=== PATIENT | male | born 1965 | race Two or more races ===

== ENCOUNTER 2025-07-16 15:39 | Inpatient (IN) | payer OTHER ==
[~2025-07-16] VITALS: Ht 167.6 cm; Wt 71.4 kg
--- NOTE | 2025-07-16 16:48 | DVH ---
CLINICAL HISTORY: chest pain TECHNIQUE: Single view of the chest was obtained. COMPARISON: None FINDINGS: The heart size and pulmonary vasculature are normal. The lungs are clear. IMPRESSION: NO ACUTE CARDIOPULMONARY PROCESS.
--- NOTE | 2025-07-16 17:02 | ED.PDOC ---
SOB-HPI HPI Comments This is a 59 year old male presenting to the ED with chief complaint of SOB. Patient reports that he has been experiencing SOB with associated left sided chest pain since last night. Patient relays that he has been unable to sleep due to the SOB. Patient states that he has history of pleural effusion a few months ago. Patient denies any fever, chills, dizziness, headache, hemoptysis, or syncope. Chief Complaint: Shortness of Breath Time Seen by MD: 16:00 Reviewed notes: Nurses Notes, Allergies Information Source: Patient Mode of Arrival: Ambulatory Severity: Moderate Timing: Hours Duration: Since onset Context: At Rest PE Risk Factors: None History of: None Prehospital treatment: None Modifying Factors: Nothing Associated Signs and Symptoms: Chest Pain Quality: Aching Radiation: No Radiation Location: Substernal Past Medical History PAST MEDICAL HISTORY: Denies Surgical History: Denies all surgeries Family History Family History: Reviewed,noncontributory to illness Social History Smoker: Non-Smoker Alcohol: Denies ETOH Use Drugs: Denies Drug Use Lives In: Home Constitutional: denies: chills, diaphoresis, fatigue, fever, malaise, sweats, weakness, others EENTM: denies: blurred vision, double vision, ear bleeding, ear discharge, ear drainage, ear pain, ear ringing, eye pain, eye redness, hearing loss, mouth pain, mouth swelling, nasal discharge, nose bleeding, nose congestion, nose p ain, photophobia, tearing, throat pain, throat swelling, voice changes, others Respiratory: reports: shortness of breath; denies: cough, hemoptysis, orthopnea, SOB at rest, SOB with excertion, stridor, wheezing, others Cardiovascular: reports: chest pain; denies: dizzy spells, diaphoresis, Dyspnea on exertion, edema, irregular heart beat, left arm pain, lightheadedness, palpitations, PND, syncope, others Gastrointestinal: denies: abdomen distended, abdominal pain, blood streaked bowels, constipated, diarrhea, dysphagia, difficulty swallowing, hematemesis, melena, nausea, poor appetite, poor fluid intake, rectal bleeding, rectal pain, vomiting, others Genitourinary: denies: burning, dysuria, flank pain, frequency, hematuria, incontinence, penile discharge, penile sore, pain, testicle pain, testicle swelling, urgency, others Neurological: denies: dizziness, fainting, headache, left sided numbness, left sided weakness, numbness, paresthesia, pre-existing deficit, right sided numbness, right sided weakness, seizure, speech problems, tingling, tremors, weakness, others Musculoskeletal: denies: back pain, gout, joint pain, joint swelling, muscle pain, muscle stiffness, neck pain, others Integumetry: denies: bruises, change in color, change in hair/nails, dryness, laceration, lesions, lumps, rash, wounds, others Allergic/Immunocompromised: denies: Difficulty Healing, Frequent Infections, Hives, Itching, others Hematologic/Lymphatic: denies: anemia, blood clots, easy bleeding, easy bruising, swollen glands, others Endocrine: denies: excessive hunger, excessive sweating, excessive thirst, excessive urination, flushing, intolerance to cold, intolerance to heat, unexplained weight gain, unexplained weight loss, others Psychiatric: denies: anxiety, bipolar disorder, depression, hopeless, panic disorder, schizophrenia, sleepless, suicidal, others All Other Systems: Reviewed and Negative Physical Exam General Appearance: No Apparent Distress, Normal HEENT: Normal ENT Inspection, Pharynx Normal, TMs Normal Neck: Full Range of Motion, Non-Tender, Normal, Normal Inspection Respiratory: Chest Non-Tender, Lungs Clear, No Accessory Muscle Use, No Respiratory Distress, Normal Breath Sounds Cardiovascular: No Edema, No JVD, No Murmur, No Gallop, Normal Peripheral Pulses, Regular Rate/Rhythm Breast Exam: Deferred Gastrointestinal: No Organomegaly, Non Tender, No Pulsatile Mass, Normal Bowel Sounds, Soft Genitalia: Deferred Pelvic: Deferred Rectal: Deferred Extremities: No calf tenderness, Normal capillary refill, Normal inspection, Normal range of motion, Non-tender, No pedal edema Musculoskeletal : Apperance: Normal 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 Was a procedure done?: No Differential Dx Differential Diagnosis: CHF, COPD, Hypertension, Hyponatremia, Panic Attack, Pneumonia, Pneumothorax, Sinusitis X-Ray, Labs, Meds, VS Vital Signs Date Time Temp Pulse Resp B/P (MAP) Pulse Ox O2 Delivery O2 Flow Rate FiO2 07/16/25 15:50 98.6 109 22 186/129 98 98.6 07/16/25 15:46 106 Lab Test 07/16/25 17:59 07/16/25 16:47 Range/Units Troponin I High Sensitivity 49 50 </=54 ng/L White Blood Count 6.6 4.4-10.8 10^3/uL Red Blood Count 4.88 4.5-5.90 10^6/uL Hemoglobin 15.2 13.5-17.5 g/dL Hematocrit 44.0 41.0-53.0 % Mean Corpuscular Volume 90.3 80.0-100.0 fL Mean Corpuscular Hemoglobin 31.1 28.0-32.0 pg Mean Corpuscular Hemoglobin Concent 34.4 32.0-36.0 g/dL Red Cell Distribution Width 14.4 H 11.8-14.3 % Platelet Count 152 140-450 10^3/uL Mean Platelet Volume 9.1 6.9-10.8 fL Neutrophils (%) (Auto) 58.2 37.0-80.0 % Lymphocytes (%) (Auto) 30.4 10.0-50.0 % Monocytes (%) (Auto) 8.9 0.0-12.0 % Eosinophils (%) (Auto) 1.5 0.0-7.0 % Basophils (%) (Auto) 1.0 0.0-2.0 % Neutrophils # (Auto) 3.8 1.6-8.6 10 ^3/uL Lymphocytes # (Auto) 2.0 0.4-5.4 10 ^3/uL Monocytes # (Auto) 0.6 0-1.3 10 ^3/uL Eosinophils # (Auto) 0.1 0-0.8 10 ^3/uL Basophils # (Auto) 0.1 0-0.2 10 ^3/uL Nucleated Red Blood Cells 1.2 % Sodium Level 143 136-145 mmol/L Potassium Level 3.9 3.5-5.1 mmol/L Chloride Level 110 H 98-107 mmol/L Carbon Dioxide Level 22 20-31 mmol/L Anion Gap 11 5-15 Blood Urea Nitrogen 18 9-23 mg/dL Creatinine 1.08 0.700-1.30 mg/dL Glomerular Filtration Rate Calc 80 >90 mL/min BUN/Creatinine Ratio 16.7 10.0-20.0 Serum Glucose 94 74-106 mg/dL Calcium Level 9.1 8.7-10.4 mg/dL B-Type Natriuretic Peptide 2738.01 0-100 pg/mL Time of 1ST Reevaluation: 17:00 Reevaluation 1ST: Unchanged Patient Education/Counseling: Diagnosis, Treatment Family Education/Counseling: Diagnosis, Treatment SEPSIS Sepsis Screen Date sepsis recognized/suspect: Jul 16, 2025 Time Sepsis recognized/suspect: 1536 Recent Procedure: No On Antibiotic Therapy: No Respiratory Rate >20: Yes Heart Rate >90: Yes Temp<36 C (96.8 F) or >38.3 C: No SBP <90 or MAP <65 mmHG: No New Acute Mental Status Change: No Is the patient on CPAP, BIPAP,: No Physician Orders Electrocardigram (07/16/25 15:51) Chest Portable (07/16/25 16:07) Troponin-I Hs (07/16/25 19:07) Vital Signs Date Time Temp Pulse Resp B/P (MAP) Pulse Ox O2 Delivery O2 Flow Rate FiO2 07/16/25 15:50 98.6 109 22 186/129 98 98.6 07/16/25 15:46 106 Laboratory Tests Test 07/16/25 16:47 White Blood Count 6.6 10^3/uL (4.4-10.8) Departure 1 Departure Time of Disposition: 19:01 (Patient presented with chest pain that was concerning for possible STEMI, ACS, PE, Pneumonia, Muscle Strain, COPD, Dissection. Data: 1. I ordered and reviewed the result of at least 3 labs including a CBC, BMP, and Troponin. 2. I independently interpreted the following tests: EKG which shows sinus arrhythmia and Chest X-ray which shows benign chest.Risk:This patient has a high risk of morbidity due to further diagnostic testing or treatment and may suffer from an acute cardiac or respiratory disorder. Workup reveals concern for ACS and patient should be admitted for further workup and possible expert consultation. ) Impression: Primary Impression: Acute chest pain Additional Impression: Shortness of breath Disposition: ADMITTED INPATIENT Admit to: Med Surg Condition: Serious Critical Care Note Critical Care Time?: Yes Critical care comment: Acute chest pain Authorized and Performed by: Wagner Ureña MD Total critical care time: Approximately 38 minutes Due to a high probability of clinically significant, life threatening deterior ation, the patient required my highest level of preparedness to intervene emergently and I personally spent this critical care time directly and personally managing the patient. This critical care time included obtaining a history; examining the patient; pulse oximetry; ordering and review of studies; arranging urgent treatment with development of a management plan; evaluation of patient's response to treatment; frequent reassessment; and, discussions with other providers. This critical care time was performed to assess and manage the high probability of imminent, life-threatening deterioration that could result in multi-organ failure. It was exclusive of separately billable procedures and treating other patients and teaching time. Please see my other sections and the rest of the note for further information on patient assessment and treatment. Stability Stability form required: No Heart Score Heart Score: Heart Score Response (Comments) Value History N/A 0 EKG N/A 0 Age N/A 0 Risk Factors N/A 0 Troponin N/A 0 Total 0 I personally scribed for WAGNER UREÑA MD ([email or web address]) on 07/16/25 at 17:02. Electronically submitted by Edin Jean ([email or web address]). WAGNER UREÑA MD Jul 16, 2025 17:02
[2025-07-16 17:03] LABS: Hematocrit 44.0 % (41.0-53.0); Hemoglobin 15.2 g/dL (13.5-17.5); Mean Corpuscular Hemoglobin 31.1 pg (28.0-32.0); Mean Corpuscular Volume 90.3 fL (80.0-100.0); Nucleated Red Blood Cells % 1.2 %
[2025-07-16 17:13] LABS: Potassium 3.9 mmol/L (3.5-5.1); Sodium 143 mmol/L (136-145)
[2025-07-16 17:14] LABS: Anion Gap 11 (5-15); Calcium 9.1 mg/dL (8.7-10.4); Carbon Dioxide 22 mmol/L (20-31)
[2025-07-16 17:15] LABS: Chloride 110 mmol/L (98-107)
[2025-07-16 17:19] LABS: BUN/Creatinine Ratio 16.7 (10.0-20.0); Blood Urea Nitrogen 18 mg/dL (9-23); Glucose 94 mg/dL (74-106)
[2025-07-16] MEDS ORDERED: DOCUSATE SOD 100 MG CAP PO PRN (23:15)
[2025-07-16] MEDS ORDERED: ACETAMINOPHEN 325 MG TAB PO PRN (23:15)
[2025-07-16] MEDS ORDERED: HYDROcodone-ACET 5/325MG TAB PO PRN (23:15)
[2025-07-16] MEDS ORDERED: NITROGLYCERIN 0.4 MG SL TAB SL PRN (23:15)
[2025-07-17] VITALS (8 sets, daily range): BP systolic 139–162; BP diastolic 100–116; PULSE 71–107; RESP 16–20; TEMP 97.4–98.7; O2SAT 94–100
[2025-07-17 01:20] LABS: Hematocrit 44.0 % (41.0-53.0); Hemoglobin 14.8 g/dL (13.5-17.5); Mean Corpuscular Hemoglobin 30.5 pg (28.0-32.0); Mean Corpuscular Volume 90.5 fL (80.0-100.0); Nucleated Red Blood Cells % 0.1 %
[2025-07-17 01:31] LABS: Albumin 4.2 g/dL (3.2-4.8); Alkaline Phosphatase 97 U/L (46-116); Anion Gap 9 (5-15); BUN/Creatinine Ratio 18.9 (10.0-20.0); Calcium 9.1 mg/dL (8.7-10.4); Carbon Dioxide 26 mmol/L (20-31); Potassium 4.2 mmol/L (3.5-5.1); Total Protein 7.0 g/dL (5.7-8.2)
[2025-07-17 01:32] LABS: Bilirubin, Total 0.6 mg/dL (0.2-1.0)
[2025-07-17 01:35] LABS: Alanine Aminotransferase 42 U/L (7-40); Blood Urea Nitrogen 23 mg/dL (9-23); Chloride 111 mmol/L (98-107); Glucose 110 mg/dL (74-106); Sodium 146 mmol/L (136-145)
[2025-07-17] MEDS: ATORVASTATIN 20 MG TAB PO SCH (03:18)
--- NOTE | 2025-07-17 03:52 | ECG ---
[facility] Test Date: 2025-07-16 Test Time: 15:46:17 Pat Name: JORGE MCCLENDON Department: ED Room: 0292T B Gender: M Director Clinical Research: JORGITO : 1965 Requested By: WAGNER ORTEZ Order Number: [id number] Reading MD: Von Lynch Measurements Intervals [place]iken Rate: 106 P: 63 IL: 151 QRS: 92 QRSD: 98 T: 38 QT: 335 QTc: 445 Interpretive Statements Sinus tachycardia Biatrial enlargement Borderline right axis deviation LVH with secondary repolarization abnormality Baseline wander in lead(s) II,aVR,V1 Electronically Signed On 07-20-2025 10:21:04 PDT by Von Lynch Please click the below link to view image of tracing.
[2025-07-17] MEDS: FUROSEMIDE 40 MG/4 ML VIAL IV ONE (05:06)
--- NOTE | 2025-07-17 05:13 | DVHHPRES ---
History of Present Illness Resident Creating Document: ELIJAH LEONARD RESIDENT History of Present Illness History of Present Illness (HPI): Mary Chand is a 59-year-old male with a medical history significant for heart failure with reduced ejection fraction, hypertension, dyslipidemia, and a prior episode of pleural effusion a few months ago, who presented to the emergency department with a chief complaint of shortness of breath (SOB) and left-sided chest pain. He reports that the SOB began two days ago and has been persistent, accompanied by sharp, on-and-off chest pain rated 7 out of 10 in intensity, without radiation or identifiable alleviating or aggravating factors. The patient notes that the SOB worsened last night, preventing him from sleeping, and has been severe enough to keep him from going to work. He finds some relief when elevating the head of his bed. In addition to his current symptoms, he mentions having had a headache for the past two months. He denies experiencing fever, chills, dizziness, hemoptysis, syncope, or any new-onset headache during this episode. Past Medical History (PMH): heart failure with reduced ejection fraction, hypertension, dyslipidemia, pleural effusion Past Surgical History (PSH): Thoracentesis OBGYN Hx in Females: noncontributory Family history (FH): no relevant family history EtOH: quit alcohol use 2 years ago Smoking /Vapin pack years Recreational Drugs: admits cocaine use, stopped 5 years ago Residence: lives with family Home Medications: no home medications Allergies: no known allergies PCP: Dr. Hawkins Specialist relevant to admission: nonrelevant Review of Systems Review of Systems General: patient denies fever, fatigue, weaknes, sweating, any recent changes in appetite and weight HEENT: No headaches, visiual changes, hearing loss, tinnitus, nasal congestion and discharge, and sore throat. Cardiovascular: Complains of chest pain, shortness of breath Respiratory: No cough, and wheezing. Gastrointestinal: Denies nausea, vomiting, dysphagia, odynophagia, heartburn, abdominal pain, flatulence, bloating, diarrhea, constipation, change in stool, or blood in stool. Genitourinary: No dysuria, hematuria, discharge, frequency, urgency, nocturia, incontinence, and urinary retention. Endocrine: No heat or cold intolerance, polydipsia, polyuria, and polyphagia. Neurological: No dizziness, extremity weakness and numbness, tremors, gait disturbance, seizures, and memory impairment. Psychiatric: Denies depression, anxiety,or insomnia. Musculoskeletal: Denies neck pain, stiffness and swelling, back pain, muscle weakness, joint pain, stiffness, swelling, or limited range of motion. Skin: No rashes, itching, skin lesion, changes in hair, nail, skin texture and breast. Hematologic/Lymphatic: Denies easy bruising, bleeding tendencies, or lymph node enlargement. Allergies: Coded Allergies: NO KNOWN ALLERGIES (Unverified , 07/16/25) Medications Current Medications Medications Dose Ordered Sig/Mary Route Start Time Stop Time Status Last Admin Dose Admin Acetaminophen 325 mg Q4HP PRN PO 07/16/25 23:15 Acetaminophen/ Hydrocodone Bitart 1 tab Q4HP PRN PO 07/16/25 23:15 Ondansetron HCl 4 mg Q4HP PRN IV 07/16/25 23:15 Docusate Sodium 100 mg BIDPRN PRN PO 07/16/25 23:15 Nitroglycerin 0.4 mg Q5MINP PRN SL 07/16/25 23:15 Morphine Sulfate 2 mg Q30M PRN IV 07/16/25 23:15 Atorvastatin Calcium 40 mg HS PO 07/17/25 00:45 07/17/25 03:18 40 MG Aspirin 81 mg DAILY PO 07/17/25 00:45 07/17/25 03:18 81 MG Exam Vital Signs Vital Signs Date Time Temp Pulse Resp B/P (MAP) Pulse Ox O2 Delivery O2 Flow Rate FiO2 07/17/25 04:41 144/110 (121) 07/17/25 03:36 98.7 71 18 94 98.7 07/17/25 03:36 Room Air* 0 21 Exam General Appearance: Alert, Oriented X3, Cooperative, No acute distress HEENT: Atraumatic, PERRLA, EOMI, Mucous membrane moist/pink Respiratory: Mild crackles Cardiovascular: Regular rate, Normal S1, Normal S2, No murmurs, no chest wall tenderness Abdominal: Normal bowel sounds, Soft, No tenderness, No hepatospenomegaly, No masses Extremities: No clubbing, No cyanosis, No edema, Normal pulses, No tenderness/swelling Skin: No rashes, No breakdown, No significant lesion Neuro: Normal gait, Normal speech, Strength at 5/5 X4 ext, Normal tone, Sensation intact, Cranial nerves 3-12 NL, Reflexes 2+ Psych/Mental Status: Mental status NL, Mood NL Labs/Xrays Labs Test 07/17/25 00:56 07/17/25 00:50 07/16/25 20:12 Range/Units White Blood Count 7.7 4.4-10.8 10^3/uL Red Blood Count 4.86 4.5-5.90 10^6/uL Hemoglobin 14.8 13.5-17.5 g/dL Hematocrit 44.0 41.0-53.0 % Mean Corpuscular Volume 90.5 80.0-100.0 fL Mean Corpuscular Hemoglobin 30.5 28.0-32.0 pg Mean Corpuscular Hemoglobin Concent 33.7 32.0-36.0 g/dL Red Cell Distribution Width 14.8 H 11.8-14.3 % Platelet Count 147 140-450 10^3/uL Mean Platelet Volume 9.0 6.9-10.8 fL Neutrophils (%) (Auto) 66.9 37.0-80.0 % Lymphocytes (%) (Auto) 23.2 10.0-50.0 % Monocytes (%) (Auto) 8.3 0.0-12.0 % Eosinophils (%) (Auto) 0.9 0.0-7.0 % Basophils (%) (Auto) 0.7 0.0-2.0 % Neutrophils # (Auto) 5.2 1.6-8.6 10 ^3/uL Lymphocytes # (Auto) 1.8 0.4-5.4 10 ^3/uL Monocytes # (Auto) 0.6 0-1.3 10 ^3/uL Eosinophils # (Auto) 0.1 0-0.8 10 ^3/uL Basophils # (Auto) 0.1 0-0.2 10 ^3/uL Nucleated Red Blood Cells 0.1 % Sodium Level 146 H 136-145 mmol/L Potassium Level 4.2 3.5-5.1 mmol/L Chloride Level 111 H 98-107 mmol/L Carbon Dioxide Level 26 20-31 mmol/L Anion Gap 9 5-15 Blood Urea Nitrogen 23 9-23 mg/dL Creatinine 1.22 0.700-1.30 mg/dL Glomerular Filtration Rate Calc 69 >90 mL/min BUN/Creatinine Ratio 18.9 10.0-20.0 Serum Glucose 110 H 74-106 mg/dL Calcium Level 9.1 8.7-10.4 mg/dL Total Bilirubin 0.6 0.2-1.0 mg/dL Aspartate Amino Transferase (AST) 30 13-40 U/L Alanine Aminotransferase (ALT) 42 H 7-40 U/L Alkaline Phosphatase 97 46-116 U/L C-Reactive Protein High Sensitivity 0.77 <1.0 mg/dL Total Protein 7.0 5.7-8.2 g/dL Albumin 4.2 3.2-4.8 g/dL Erythrocyte Sedimentation Rate 8 0-20 mm/hr D-Dimer, Quantitative 0.72 H 0.0-0.49 mg/L FEU B-Type Natriuretic Peptide 2760.45 0-100 pg/mL Troponin I High Sensitivity 53 </=54 ng/L SEPSIS Sepsis Screen Date sepsis recognized/suspect: Jul 16, 2025 Time Sepsis recognized/suspect: 1536 Recent Procedure: No On Antibiotic Therapy: No Respiratory Rate >20: Yes Heart Rate >90: Yes Temp<36 C (96.8 F) or >38.3 C: No SBP <90 or MAP <65 mmHG: No New Acute Mental Status Change: No Is the patient on CPAP, BIPAP,: No Physician Orders Admit (07/16/25 23:06) Allergies (07/16/25 23:06) Code Status (07/16/25 23:06) Acetaminophen Tablet (Tylenol Tablet) (07/16/25 23:15) Hydrocodone-Acet 5/325mg Tab ([place] (07/16/25 23:15) Ondansetron Hcl (Zofran) (07/16/25 23:15) Docusate Sodium Capsule (Colace Capsule) (07/16/25 23:15) Cardiac Diet-2gna,Lofat,Lochol (07/17/25 Breakfast) Condition: Fair (07/16/25 23:06) Nitroglycerin Sublingual (Ntrostat Subli (07/16/25 23:15) Morphine Sulfate Injection (07/16/25 23:15) Stat Ekg For Chest Pain (07/16/25 23:06) Oracle Scm Consultant For 24 Hours (07/16/25 23:06) Communication Order (07/17/25 00:31) Echo 2d Mode Cardiac Dop (07/17/25 00:33) Atorvastatin (Lipitor) (07/17/25 00:45) Aspirin Tablet (07/17/25 00:45) Drug Screen (07/17/25 01:00) Vital Signs Date Time Temp Pulse Resp B/P (MAP) Pulse Ox O2 Delivery O2 Flow Rate FiO2 07/17/25 04:41 144/110 (121) 07/17/25 03:36 98.7 71 18 162/116 (131) 94 98.7 07/17/25 03:36 94 18 94 Room Air* 0 21 07/17/25 00:25 97.5 85 16 159/100 (119) 99 97.5 Laboratory Tests Test 07/17/25 00:56 White Blood Count 7.7 10^3/uL (4.4-10.8) Medications Medications Dose Ordered Sig/Mary Route Start Time Stop Time Status Last Admin Dose Admin Aspirin 81 mg DAILY PO 07/17/25 00:45 07/17/25 03:18 81 MG Atorvastatin Calcium 40 mg HS PO 07/17/25 00:45 07/17/25 03:18 40 MG Clonidine HCl 0.2 mg ONCE ONCE PO 07/16/25 20:45 07/16/25 20:46 DC 07/16/25 21:03 0.2 MG Assessment/Plan Assessment/Plan # Acute exacerbation of heart failure with reduced ejection fraction - IV Lasix - Monitor input/ output - Daily weight monitoring # Chest pain to rule out ACS - EKG - sinus arrhythmia - Negative troponin X 3 #ruled out pneumothorax - Negative chest x-ray #To rule out pulmonary embolism - Follow D-dimer #History of essential hypertension - follow-up with PCP as outpatient to restart medications #History of dyslipidemia PUD prophylaxis: not needed DVT prophylaxis: brisk movement. Barriers to discharge: Medical diagnosis and managment in progress. Patient lives with family. Independent for ADL. PCP: Dr. Hawkins Specialist Relevent To Admission: Non-Relevant Case discussed with Dr. Fuller. Code Status: Full Code. Complex patient care discussion needed. Spend total 35 minutes for bedside assessment, case discussion and management. Plan discussed with: Patient My Orders Orders - ELIJAH LEONARD RESIDENT Procedure Category Date Status Time Admit ADMIT 07/16/25 Transmitted 23:06 Allergies KEYSHA 07/16/25 In Process 23:06 Code Status CODE 07/16/25 Transmitted 23:06 Acetaminophen Tablet PHA 07/16/25 In Process (Tylenol Tablet) 23:15 Hydrocodone-Acet PHA 07/16/25 In Process 5/325mg Tab ([place] 23:15 Ondansetron Hcl PHA 07/16/25 In Process (Zofran) 23:15 Docusate Sodium PHA 07/16/25 In Process Capsule (Colace 23:15 Cardiac DIET 07/17/25 Transmitted Diet-2gna,Lofat,Lochol Breakfast Condition: Fair KEYSHA 07/16/25 In Process 23:06 Nitroglycerin PHA 07/16/25 In Process Sublingual (Ntrostat 23:15 Morphine Sulfate PHA 07/16/25 In Process Injection 23:15 Stat Ekg For Chest KEYSHA 07/16/25 In Process Pain 23:06 Oracle Scm Consultant For KEYSHA 07/16/25 In Process 24 Hours 23:06 Communication Order ORDERS 07/17/25 Transmitted 00:31 Echo 2d Mode Cardiac US 07/17/25 Logged DOP 00:33 Atorvastatin (Lipitor) PHA 07/17/25 In Process 00:45 Aspirin Tablet PHA 07/17/25 In Process 00:45 Drug Screen LAB 07/17/25 Logged 01:00 Date of Service: Jul 16, 2025 Billing Provider: JESUS FULLER MD Common Visit Codes: [id number] INP/OBS CARE (HIGH) Secondary Visit Codes: [id number] CARE PLAN 30 MINUTES ELIJAH LEONARD Jul 17, 2025 05:13
[2025-07-17] MEDS ORDERED: ACETAMINOPHEN 325 MG TAB PO PRN (07:30)
[2025-07-17 08:24] LABS: HDL Cholesterol 45 mg/dL (40-59)
[2025-07-17 08:26] LABS: Cholesterol 235 mg/dL (< 200); Triglycerides 182 mg/dL (< 150)
[2025-07-17 08:52] LABS: Iron 78.0 ug/dL (65-175)
[2025-07-17 08:55] LABS: Total Iron Binding Capacity 336.0 ug/dL (250-425)
[2025-07-17] MEDS: SPIRONOLACTONE 25 MG TAB PO SCH (10:24)
[2025-07-17] MEDS: CARVEDILOL 3.125 MG TAB PO SCH (10:24)
[2025-07-17] MEDS: FUROSEMIDE 40 MG/4 ML VIAL IV SCH ×2 (10:24→20:56)
--- NOTE | 2025-07-17 14:15 | DVHPNRES ---
Progress Note Date Seen: Jul 17, 2025 Resident Creating Document: KD QIU RESIDENT Medical Necessity Reason Pt with a Central, PICC or Fol: No Subjective Review of Systems Mannie Hernandez is a 59-year-old male patient who presents to the ED with chief complaint of dyspnea and retrosternal oppressive chest pain intensity 7/10 which last approximately 30 seconds, normal we triggered and Functional Class III, improved from rest, which has been occurring for the past a couple of weeks before his admission, but has gotten progressively worse, associated with uncontrolled severe hypertension (systolic blood pressure above 200 mmHg). Patient reports discontinuing his medication for the past 6 months since he recently moved to [place] from [place]. Denies syncope, palpitation, orthopnea, paroxysmal nocturnal dyspnea, bilateral leg swelling, and any other associated symptoms Past medical history: Hypertension, dyslipidemia, HFrEF (LVEF 25%) with requirement of multiple thoracentesis last 1 in 2014, dilated non-ischemic cardiomyopathy Past Surgical History: Left Thoracentesis in 2 opportunities (last and 2014), 2023 coronary angiography was nonobstructive coronary artery disease per patient Family history: Noncontributory Social history: Lives in [place] with (next of kin), recently moved 6 months ago and continue seeing his PCP in [place]. Ex tobacco abuse (30 pack year history of smoking) quit approximately 7 years ago. 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 Occasional alcohol. Denies current tobacco, alcohol and other drug abuse. Allergies: Denies Home Medications: Carvedilol 3.125 mg p.o. b.i.d., vitamin-D a 1000 units p.o. daily, atorvastatin 40 mg p.o. daily, spironolactone 25 mg p.o. daily PCP: Dr. Hawkins ([place]) Patient seen and examined at bedside. Overnight events were reviewed. Currently no new complaints reported. Review of rest of the system is negative Objective vital signs Vital Sign Date Time Temp Pulse Resp B/P (MAP) Pulse Ox O2 Delivery O2 Flow Rate FiO2 07/17/25 13:00 97.4 98 16 139/ 98 97.4 07/17/25 08:00 Nasal Cannula* 2 28 Total Intake and Output 07/16/25 07/16/25 07/17/25 15:00 23:00 07:00 Intake Total 0 ml Balance 0 ml medications Current Medications Medications Dose Ordered Sig/Mary Route Start Time Stop Time Status Last Admin Dose Admin Acetaminophen/ Hydrocodone Bitart 1 tab Q4HP PRN PO 07/16/25 23:15 Ondansetron HCl 4 mg Q4HP PRN IV 07/16/25 23:15 Docusate Sodium 100 mg BIDPRN PRN PO 07/16/25 23:15 Nitroglycerin 0.4 mg Q5MINP PRN SL 07/16/25 23:15 Morphine Sulfate 2 mg Q30M PRN IV 07/16/25 23:15 Atorvastatin Calcium 40 mg HS PO 07/17/25 00:45 07/17/25 03:18 40 MG Aspirin 81 mg DAILY PO 07/17/25 00:45 07/17/25 10:23 81 MG Acetaminophen 650 mg Q4HP PRN PO 07/17/25 07:30 Spironolactone 25 mg DAILY PO 07/17/25 10:00 07/17/25 10:24 25 MG Furosemide 40 mg DAILY IV 07/17/25 10:00 07/17/25 10:24 40 MG Carvedilol 3.125 mg Q12HR PO 07/17/25 10:00 07/17/25 10:24 3.125 MG Examination Pt is lying on bed General Appearance: Alert, Oriented X3, Cooperative, Mild distress HEENT: Atraumatic, Mucous membranes moist/pink Respiratory: Clear to auscultation, Normal air movement, No added sounds Cardiovascular: JVD present, S3 present, holosystolic murmur in apical region. Regular rate, Normal S1, Normal S2 Abdominal/ : Active bowel sounds, Soft, no distention, no tenderness Extremities: No edema, Normal pulses, No tenderness/swelling Skin: No Significant rash, except past surgical scars Neuro: Normal speech, sensorimotor deficits none Psych/Mental Status: Mental status NL, Mood NL Nurse was there as family day carer during examination laboratory and microbiology Laboratory Tests 07/17/25 00:56 Test 07/17/25 00:56 Range/Units Serum Glucose 110 H 74-106 mg/dL Labs and/or images reviewed: Labs reviewed by me, Image(s) reviewed by me Problem List/Assessment/Plan Problem List/Assessment/Plan Acute respiratory failure secondary to congestive heart failure Acute on chronic systolic congestive heart failure (HFrEF, LVEF 25%), NYHA III- IV Probable dilated nonischemic cardiomyopathy Hypertensive urgency Rule out acute coronary syndrome Probably secondary angina due to severe hypertension Rule out pulmonary embolism Completed troponin x3 negative, EKG sinus rhythm with LVH (Lion-Sokolow criteria) with repolarization abnormality. BNP positive (2700). Chest x-ray shows Pulmonary congestion and cardiomegaly Probable cause of exacerbation as nonadherence to medication for the past 6 months Order echocardiogram, pending report yes Initiated partial GD MT (carvedilol 3.125 mg p.o. b.i.d., spironolactone 25 mg p.o. daily), pending Entresto and empagliflozin Continue with IV diuresing with furosemide 40 mg b.i.d. Currently on oxygen therapy with nasal cannula 2 L/min Monitor in and outs, and daily weight Order D-dimer which was mildly positive (0.72). We will wait for echocardiogram report to evaluate severe RV strain. Hyperlacticacidemia Improved with IV diuretics (optimizing preload conditions) Essential hypertension Hypertensive heart disease Dyslipidemia Currently on atorvastatin and antihypertensive medication (carvedilol and spironolactone) Gave advice on healthy lifestyle habits Nonadherence History of polysubstance abuse (heroin and tobacco) Patient has not been taking his medication for the past 6 months since he recently moved to [place] Continue cessation, counseled for over 16 minutes Order UDS Goals of care discussed with patient for over 18 minutes: Full code status Discuss case with Dr. Tan, patient and nurses: Patient on telemetry, continues with fluid overload, on IV diuretics and oxygen therapy. Order echocardiogram, pending report. Patient has poor prognosis Plan discussed with: Patient, Other (RN) Date of Service: Jul 17, 2025 Billing Provider: DAISY TAN MD Common Visit Codes: [id number] INP/OBS CARE(HIGH) KD QIU RESIDENT Jul 17, 2025 14:15 DAISY TAN MD Jul 17, 2025 21:48
[2025-07-17 14:41] LABS: Lactic Acid w/Reflex 2.5 mmol/L (0.4-2.0)
[2025-07-17] MEDS: MELATONIN 5 MG TAB PO ONE (21:07)
[2025-07-17 22:29] LABS: COVID19 ANTIGEN SOFIA FIA NEGATIVE (NEGATIVE)
[2025-07-18] VITALS (11 sets, daily range): BP systolic 132–147; BP diastolic 93–110; PULSE 73–84; RESP 16–20; TEMP 97.3–98.6; O2SAT 92–100
--- NOTE | 2025-07-18 01:55 | DVHSR ---
APPROVED REPORT EXAM: Two-dimensional and M-mode echocardiogram with Doppler and color Doppler. Blood Pressure: 144/110 mmHg INDICATION Rule out structural heart disease RISK FACTORS Height: 66, Weight: 154 DIMENSIONS LVDd6.1 (3.8-5.7cm)LA (2D)5.2 (1.9-4.0cm)Aortic Root3.9 (2.0-3.7cm) LVDs5.7 (2.5-4.0cm)LA (MM) (1.9-4.0cm)Aortic Cusp Exc1.6 (1.5-2.0cm) EF (%) 15.0 (55-70%)Rt. Atrium5.4 (1.9-4.0cm)Asc. Aorta cm IVSd1.3 (0.7-1.1cm)RV (D) (1.8-2.4cm) PWd1.2 (0.7-1.1cm) Mitral Valve MitralMitral Stenosis E wave0.95m/sMV Mean GR.mmHg A wave0.42m/sMV Peak GR.101mmHg E/A ratio2.32D MVAcm2 DECEL [id number] 1/2 Timems Aortic Valve Aortic ValveAortic Stenosis V10.75m/Carmine Mean GR.1mmHg V20.80m/Carmine Peak GR.3mmHg LVOT Diameter1.8 (1.8-2.4cm)Doppler AVA2.38cm2 AI P 1/2 Apfb902.94ms Tricuspid Valve TR Velocity3.48m/s [id number] Conclusion REMARKABLY DILATED ALL CARDIAC CHAMBERS LV EF IS ONLY 15% SEVERE GLOBAL LV AND RV HYPOKINESIS MODERATE DEGREE MR NORMAL VALVES NO EFFUSION SEVERE PULMONARY HYPERTENSION RVSP IS 60 MM OF HG AND IS VERY HIGH IT IS END STAGE DILATED CARDIOMYOPATHY
[2025-07-18 02:48] LABS: Urine Protein, UAD 1+ (Negative)
[2025-07-18 03:59] LABS: Amphetamine Screen, Urine Neg (NEGATIVE); Barbiturate Scree,Urine Neg (NEGATIVE); Benzodiazephine Screen, Urine Neg (NEGATIVE); Cannabinoid Screen, Urine Neg (NEGATIVE); Cocaine Screen, Urine Neg (NEGATIVE); Opiate Scree,Urine Neg (NEGATIVE); Phencyclidine Screen, Urine Neg (NEGATIVE)
[2025-07-18] MEDS: ONDANSETRON HCL 4 MG/2 ML VIAL IV PRN (06:39)
[2025-07-18 08:29] LABS: Hematocrit 46.0 % (41.0-53.0); Hemoglobin 15.5 g/dL (13.5-17.5); Mean Corpuscular Hemoglobin 30.6 pg (28.0-32.0); Mean Corpuscular Volume 90.9 fL (80.0-100.0); Nucleated Red Blood Cells % 0.2 %
[2025-07-18 08:52] LABS: Anion Gap 10 (5-15); Carbon Dioxide 28 mmol/L (20-31); Chloride 104 mmol/L (98-107); Potassium 4.6 mmol/L (3.5-5.1); Sodium 142 mmol/L (136-145)
[2025-07-18 08:53] LABS: Calcium 9.1 mg/dL (8.7-10.4)
[2025-07-18 08:58] LABS: BUN/Creatinine Ratio 16.1 (10.0-20.0); Blood Urea Nitrogen 19 mg/dL (9-23)
[2025-07-18 09:02] LABS: Glucose 114 mg/dL (74-106)
[2025-07-18] MEDS ORDERED: ASPI-325 PO (12:17)
[2025-07-18] MEDS ORDERED: SPIR25TA PO (12:17)
[2025-07-18] MEDS ORDERED: SACU1TAB PO (12:17)
[2025-07-18] MEDS ORDERED: EMPA1TAB PO (12:17)
[2025-07-18] MEDS ORDERED: ATOR20TA50 PO (12:17)
[2025-07-18] MEDS ORDERED: FURO40TA4 PO (12:17)
[2025-07-18] MEDS ORDERED: CARV-214 PO (12:17)
[2025-07-18] MEDS ORDERED: ACET-1882 PO (12:17)
--- NOTE | 2025-07-18 14:03 | DVHPNRES ---
Progress Note Date Seen: Jul 18, 2025 Resident Creating Document: KD QIU RESIDENT Medical Necessity Reason Pt with a Central, PICC or Fol: No Subjective Review of Systems Mannie Hernandez is a 59-year-old male patient who presents to the ED with chief complaint of dyspnea and retrosternal oppressive chest pain intensity 7/10 which last approximately 30 seconds, normal we triggered and Functional Class III, improved from rest, which has been occurring for the past a couple of weeks before his admission, but has gotten progressively worse, associated with uncontrolled severe hypertension (systolic blood pressure above 200 mmHg). Patient reports discontinuing his medication for the past 6 months since he recently moved to [place] from [place]. Denies syncope, palpitation, orthopnea, paroxysmal nocturnal dyspnea, bilateral leg swelling, and any other associated symptoms Past medical history: Hypertension, dyslipidemia, HFrEF (LVEF 25%) with requirement of multiple thoracentesis last 1 in 2014, dilated non-ischemic cardiomyopathy Past Surgical History: Left Thoracentesis in 2 opportunities (last and 2014), 2023 coronary angiography was nonobstructive coronary artery disease per patient Family history: Noncontributory Social history: Lives in [place] with (next of kin), recently moved 6 months ago and continue seeing his PCP in [place]. Ex tobacco abuse (30 pack year history of smoking) quit approximately 7 years ago. 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 Occasional alcohol. Denies current tobacco, alcohol and other drug abuse. Allergies: Denies Home Medications: Carvedilol 3.125 mg p.o. b.i.d., vitamin-D a 1000 units p.o. daily, atorvastatin 40 mg p.o. daily, spironolactone 25 mg p.o. daily PCP: Dr. Hawkins ([place]) Patient seen and examined at bedside. Patient during a.m. was completely asymptomatic planning to discharge on 07/18/2025. After eating salty food (Ramen) patient became dyspneic in Functional Class IV and required nasal cannula at 2 L/min. Educated patient on avoiding food with high content of sodium which increases afterload and precipitate acute congestive heart failure. Patient will be monitored for 24 hours after receiving once again IV furosemide. Objective vital signs Vital Sign Date Time Temp Pulse Resp B/P (MAP) Pulse Ox O2 Delivery O2 Flow Rate FiO2 9//25 12:52 97.3 84 16 140/98 (112) 92 97.3 07/18/25 08:00 Nasal Cannula* 2 28 Total Intake and Output 07/17/25 07/17/25 07/18/25 15:00 23:00 07:00 Intake Total 800 ml 900 ml Balance 800 ml 900 ml medications Current Medications Medications Dose Ordered Sig/Mary Route Start Time Stop Time Status Last Admin Dose Admin Acetaminophen/ Hydrocodone Bitart 1 tab Q4HP PRN PO 07/16/25 23:15 Ondansetron HCl 4 mg Q4HP PRN IV 07/16/25 23:15 07/18/25 06:39 4 MG Nitroglycerin 0.4 mg Q5MINP PRN SL 07/16/25 23:15 Morphine Sulfate 2 mg Q30M PRN IV 07/16/25 23:15 Atorvastatin Calcium 40 mg HS PO 07/17/25 00:45 07/17/25 21:06 40 MG Aspirin 81 mg DAILY PO 07/17/25 00:45 07/18/25 09:15 81 MG Acetaminophen 650 mg Q4HP PRN PO 07/17/25 07:30 Spironolactone 25 mg DAILY PO 07/17/25 10:00 07/18/25 09:15 25 MG Carvedilol 3.125 mg Q12HR PO 07/17/25 10:00 07/18/25 09:16 3.125 MG Furosemide 40 mg BIDD IV 07/17/25 18:00 07/18/25 05:56 40 MG Examination Pt is lying on bed General Appearance: Alert, Oriented X3, Cooperative, Mild distress HEENT: Atraumatic, Mucous membranes moist/pink Respiratory: Clear to auscultation, Normal air movement, No added sounds Cardiovascular: JVD present, S3 present, holosystolic murmur in apical region. Regular rate, Normal S1, Normal S2 Abdominal/ : Active bowel sounds, Soft, no distention, no tenderness Extremities: No edema, Normal pulses, No tenderness/swelling Skin: No Significant rash, except past surgical scars Neuro: Normal speech, sensorimotor deficits none Psych/Mental Status: Mental status NL, Mood NL Nurse was there as drywall sander during examination laboratory and microbiology Laboratory Tests 07/18/25 07:20 Test 07/18/25 07:20 Range/Units Serum Glucose 114 H 74-106 mg/dL Labs and/or images reviewed: Labs reviewed by me, Image(s) reviewed by me Problem List/Assessment/Plan Problem List/Assessment/Plan Acute respiratory failure secondary to congestive heart failure Acute on chronic systolic congestive heart failure (HFrEF, LVEF 25%), NYHA III- IV Probable dilated nonischemic cardiomyopathy Hypertensive urgency Rule out acute coronary syndrome Probably secondary angina due to severe hypertension Rule out pulmonary embolism Completed troponin x3 negative, EKG sinus rhythm with LVH (Lion-Sokolow criteria) with repolarization abnormality. BNP positive (2700). Chest x-ray shows Pulmonary congestion and cardiomegaly Probable cause of exacerbation as nonadherence to medication for the past 6 months Completed echocardiogram: Remarkably dilated all cardiac chambers, LVEF 15%, severe global LV and RV hypokinesis, moderate degree MR, severe pulmonary hypertension, RVSP 60 mmHg, end-stage dilated cardiomyopathy. Initiated partial GD MT (carvedilol 3.125 mg p.o. b.i.d., spironolactone 25 mg p.o. daily), pending Entresto and empagliflozin Continue with IV diuresing with furosemide 40 mg b.i.d. Currently on oxygen therapy with nasal cannula 2 L/min Monitor in and outs, and daily weight Hyperlacticacidemia Improved with IV diuretics (optimizing preload conditions) Essential hypertension Hypertensive heart disease Dyslipidemia Currently on atorvastatin and antihypertensive medication (carvedilol and spironolactone) Gave advice on healthy lifestyle habits Nonadherence History of polysubstance abuse (heroin and tobacco) Patient has not been taking his medication for the past 6 months since he recently moved to [place] Continue cessation, counseled for over 16 minutes Order UDS: Negative Goals of care discussed with patient for over 18 minutes: Full code status Discuss case with Dr. Tan, patient and nurses: Patient was not adherent to diet (ate salty foods), presented once ago decompensated heart failure, requires at least 24 hours more of IV diuretics. We will re-evaluate discharge on 07/19/2025 Plan discussed with: Patient, Other My Orders My Orders Orders - KD QIU Procedure Category Date Status Time Furosemide Injection PHA 07/17/25 In Process (Lasix Injection) 18:00 Discharge DISCHARGE 07/18/25 Transmitted 12:10 KD QIU RESIDENT Jul 18, 2025 14:03 WANDA RADFORD RESIDENT Jul 19, 2025 17:07
[2025-07-18] MEDS: MORPHINE SULFATE INJ 2 MG/ml SYRG IV PRN (20:45)
[2025-07-19] VITALS (7 sets, daily range): BP systolic 119–143; BP diastolic 83–101; PULSE 67–83; RESP 16–19; TEMP 97.7–98.7; O2SAT 96–98
[2025-07-19 07:48] LABS: Hematocrit 43.5 % (41.0-53.0); Hemoglobin 15.0 g/dL (13.5-17.5); Mean Corpuscular Hemoglobin 30.9 pg (28.0-32.0); Mean Corpuscular Volume 89.3 fL (80.0-100.0); Nucleated Red Blood Cells % 0.4 %
[2025-07-19 07:56] LABS: Anion Gap 12 (5-15); Calcium 9.2 mg/dL (8.7-10.4); Carbon Dioxide 25 mmol/L (20-31); Chloride 104 mmol/L (98-107); Potassium 3.6 mmol/L (3.5-5.1); Sodium 141 mmol/L (136-145)
[2025-07-19 08:02] LABS: BUN/Creatinine Ratio 17.5 (10.0-20.0); Blood Urea Nitrogen 20 mg/dL (9-23); Glucose 85 mg/dL (74-106)
--- NOTE | 2025-07-19 10:36 | DVHINCON2 ---
Date Seen: Jul 19, 2025 Referring Physician Segundo Reason for Consultation Chest Pain History of Present Illness 59-year-old male with PMH for HFrEF, cardiomyopathy, HTN, HLD, presents to the hospital with shortness of breath, left-sided chest pain. Patient states began worsening shortness of breath, having chest pain left-sided sharp in nature intermittent nonradiating, worsens with deep inhalation. Patient endorses has had full cardiac workup within the last couple of months at [facility]. Previous angiogram with no blockages or occlusions. Patient also states he was previously offered and suggested to have implantation of defibrillator though refused and did not want to have it done. States he has been off his medications for a couple of months now since he moved from [facility]. Upon evaluation in the ER patient found to have BNP of 2738, tropes negative x3, UDS. CXR negative for congestion/edema. EKG reviewed and shows sinus tachycardia at 106 beats per minute, LVH, lateral ST and T-wave abnormality. Past Medical History HTN HFrEF Nonischemic cardiomyopathy HLD Past Surgical History Coronary angiogram - per patient endorses no obstructive CAD Family History: Patient reports no known family medical history. Social History Previous history of cocaine abuse, tobacco use Allergies: Coded Allergies: NO KNOWN ALLERGIES (Unverified , 07/16/25) Home Meds Active Scripts Empagliflozin (Jardiance) 10 Mg Tab, 10 MG PO DAILY for 30 Days, #30 TAB Prov:WANDA RADFORD 07/18/25 Sacubitril-Valsartan (Entresto 24-26 mg) 1 Tab Tab, 1 TAB PO BID for 30 Days, #60 TAB Prov:WANDA RADFORD 07/18/25 Spironolactone (Aldactone) 25 Mg Tab, 25 MG PO DAILY for 30 Days, #30 TAB Prov:WANDA RADFORD 07/18/25 Furosemide (Furosemide) 40 Mg Tab, 40 MG PO DAILY for 30 Days, #30 TAB Prov:WANDA RADFORD 07/18/25 Carvedilol (COREG) 3.125 Mg Tab, 3.125 MG PO Q12HR for 30 Days, #60 TAB Prov:WANDA RADFORD 07/18/25 Atorvastatin Calcium (ATORVASTATIN CALCIUM) 20 Mg Tab, 40 MG PO HS for 30 Days, #60 TAB Prov:WANDA RADFORD RESIDENT 07/18/25 Aspirin (Aspirin Low Dose) 81 Mg Tab, 81 MG PO DAILY for 30 Days, #30 TAB Prov:WANDA RADFORD RESIDENT 07/18/25 Acetaminophen (Acetaminophen) 325 Mg Tab, 650 MG PO Q4HP PRN for 15 Days, #150 TAB Prov:WANDA RADFORD RESIDENT 07/18/25 Review of Systems Constitutional: No: Fever, Chills, Sweats, Weakness, Malaise, Other Eyes: No: Pain, Vision change, Conjunctivae inflammation, Eyelid inflammation, Other, Redness ENT: No: Ear pain, Ear discharge, Nose pain, Nose discharge, Nose congestion, Mouth pain, Mouth swelling, Throat pain, Throat swelling, Other Respiratory: No: Cough, Dry, Shortness of breath, SOB with exertion, Wheezing, Hemoptysis, Pleuritic Pain, Sputum, Wheezing, Other Cardiovascular: ; No: Chest Pain Palpitations, Orthopnea, Paroxysmal Noc. Dyspnea, Edema, Lt Headedness, Other Gastrointestinal: No: Nausea, Vomiting, Abdominal Pain, Diarrhea, Constipation, Melena, Hematochezia, Other Genitourinary: No Dysuria, No Frequency, No Incontinence, No Hematuria, No Re tention, No Other Musculoskeletal: neck pain; No: other, shoulder pain, arm pain, back pain, hand pain, leg pain, foot pain Skin: No: Rash, Lesions, Jaundice, Bruising, Other Neurological: Other (Dizziness, headache.); No: Weakness, Numbness, Incoordina tion, Change in speech, Confusion, Seizures Vital Signs Vital Signs Date Time Temp Pulse Resp B/P (MAP) Pulse Ox O2 Delivery O2 Flow Rate FiO2 07/19/25 05:32 127/97 07/19/25 05:00 98.0 82 19 98 98.0 07/18/25 20:00 Room Air* 0 21 Physical Exam General appearance: Patient is well-developed, well-nourished, in no acute distress. HEENT: Exam shows: Normocephalic, atraumatic, PERRLA, EOMI Neck: Supple, no bruits Chest: Equal chest excursion bilaterally. Breath sounds normal-no rales or wheezes. Heart: Rhythm: Regular rate; no murmur or gallop Abdomen: Exam shows: Soft, nontender, nondistended Musculoskeletal: No clubbing, no cyanosis, no lower extremity edema Dermatology: Skin warm, moist. Neurological: Exam shows: Alert and oriented x4, normal speech Available prior records, labs, EKG, rhythm strips reviewed and interpreted Labs/Diagnostic Data Labs Test 07/19/25 05:38 07/17/25 23:00 07/17/25 16:11 07/17/25 09:39 Range/Units White Blood Count 6.8 4.4-10.8 10^3/uL Red Blood Count 4.87 4.5-5.90 10^6/uL Hemoglobin 15.0 13.5-17.5 g/dL Hematocrit 43.5 41.0-53.0 % Mean Corpuscular Volume 89.3 80.0-100.0 fL Mean Corpuscular Hemoglobin 30.9 28.0-32.0 pg Mean Corpuscular Hemoglobin Concent 34.6 32.0-36.0 g/dL Red Cell Distribution Width 14.4 H 11.8-14.3 % Platelet Count 157 140-450 10^3/uL Mean Platelet Volume 9.5 6.9-10.8 fL Neutrophils (%) (Auto) 59.7 37.0-80.0 % Lymphocytes (%) (Auto) 24.4 10.0-50.0 % Monocytes (%) (Auto) 10.8 0.0-12.0 % Eosinophils (%) (Auto) 4.1 0.0-7.0 % Basophils (%) (Auto) 1.0 0.0-2.0 % Neutrophils # (Auto) 4.1 1.6-8.6 10 ^3/uL Lymphocytes # (Auto) 1.7 0.4-5.4 10 ^3/uL Monocytes # (Auto) 0.7 0-1.3 10 ^3/uL Eosinophils # (Auto) 0.3 0-0.8 10 ^3/uL Basophils # (Auto) 0.1 0-0.2 10 ^3/uL Nucleated Red Blood Cells 0.4 % Sodium Level 141 136-145 mmol/L Potassium Level 3.6 3.5-5.1 mmol/L Chloride Level 104 98-107 mmol/L Carbon Dioxide Level 25 20-31 mmol/L Anion Gap 12 5-15 Blood Urea Nitrogen 20 9-23 mg/dL Creatinine 1.14 0.700-1.30 mg/dL Glomerular Filtration Rate Calc 75 >90 mL/min BUN/Creatinine Ratio 17.5 10.0-20.0 Serum Glucose 85 74-106 mg/dL Calcium Level 9.2 8.7-10.4 mg/dL Urine Color Yellow Yellow Urine Clarity Clear Clear Urine pH 6.5 5.0-9.0 Urine Specific Dickens 1.023 1.001-1.035 Urine Protein 1+ H Negative Urine Ketones Negative Negative Urine Blood Negative Negative /uL Urine Nitrite Negative Negative Urine Bilirubin Negative Negative Urine Urobilinogen Normal Negative mg/dL Urine Leukocyte Esterase Negative Negative /uL Urine RBC 3 0 - 3 /hpf Urine Microscopic WBC 1 0-3 /HPF Urine Squamous Epithelial Cells None seen <5 /hpf Urine Calcium Oxalate Crystals Few None Seen Urine Bacteria Few H None Seen /hpf Urine Mucus Few None Seen Urine Glucose Normal Normal mg/dL Urine Opiates Screen Neg NEGATIVE Urine Fentanyl Screen Neg NEGATIVE Urine Barbiturates Screen Neg NEGATIVE Urine Phencyclidine Screen Neg NEGATIVE Urine Amphetamines Screen Neg NEGATIVE Urine Benzodiazepines Screen Neg NEGATIVE Urine Cocaine Screen Neg NEGATIVE Urine Cannabinoids Screen Neg NEGATIVE Lactic Acid Level 1.8 0.4-2.0 mmol/L Influenza Type A Antigen Negative Negative Influenza Type B Antigen Negative Negative Test 07/17/25 00:56 07/17/25 00:50 07/17/25 00:00 07/16/25 20:12 Range/Units Iron Level 78 65-175 ug/dL Total Iron Binding Capacity 336 250-425 ug/dL Percent Iron Saturation 23.2 20-55 % Ferritin 179.3 22-322 ng/mL Total Bilirubin 0.6 0.2-1.0 mg/dL Aspartate Amino Transferase (AST) 30 13-40 U/L Alanine Aminotransferase (ALT) 42 H 7-40 U/L Alkaline Phosphatase 97 46-116 U/L C-Reactive Protein High Sensitivity 0.77 <1.0 mg/dL Total Protein 7.0 5.7-8.2 g/dL Albumin 4.2 3.2-4.8 g/dL Triglycerides Level 182 H < 150 mg/dL Cholesterol Level 235 H < 200 mg/dL LDL Cholesterol 186 H < 100 mg/dL HDL Cholesterol 45 40-59 mg/dL Vitamin B12 Level 460 211-911 pg/mL Vitamin D 25-Hydroxy 30.7 30.0-100 ng/mL Thyroid Stimulating Hormone (TSH) 1.38 0.55-4.78 uIU/mL Plasma/Serum Blood Alcohol < 3.0 <10 mg/dL Erythrocyte Sedimentation Rate 8 0-20 mm/hr D-Dimer, Quantitative 0.72 H 0.0-0.49 mg/L FEU B-Type Natriuretic Peptide 2760.45 0-100 pg/mL SARS-CoV-2 Antigen (Rapid) Negative NEGATIVE Troponin I High Sensitivity 53 </=54 ng/L Assessment * Chest pain - atypical. Pleuritic in nature. Troponins negative. Echo showing EF 15% severe global LV and RV hypokinesis. Severe pulmonary hypertension with RVSP 60 mmHg * Acute on chronic HFrEF - being diuresed with Lasix 40 mg IV twice daily. Monitor strict I&Os. Plan to continue with Lasix 40 mg daily p.o. upon discharge. * End-stage nonischemic dilated cardiomyopathy - GDMT with Coreg 3.125 mg p.o. twice daily, add lisinopril 5 mg p.o. daily continue spironolactone. Continues to not want workup for defibrillator implantation. Verbalizes understanding and risks including life-threatening arrhythmias leading to . Continue medical management. * HTN - continue on current regimen, continue trending. * HLD - statin * Medication noncompliance - Advised compliance and outpatient monitoring with cardiology. Case Discussed with Dr Man. Continue diuresis until euvolemic. Continue on GDMT as tolerated. Continues to not want AICD implantation, verbalizing risks including life-threatening arrhythmias leading to . Advised medication compliance and outpatient cardiology follow up. Critical care, time spent: 40 minutes This medical document was created using an electronic medical record system with voice recognition software and computerized dictation system. Although this document has been carefully reviewed, there might still be some phonetic and typographical errors. Occasional wrong-word or ``sound-alike substitutions may have occurred due to the inherent limitations of voice recognition software. These areas are purely typographical due to imperfections of the software programs and do not reflect any compromise in the patient's medical care. Please read the chart carefully and recognize, using context, where these substitutions have occurred. Thank you for allowing me to participate in the management of this patient. The treatment plan was discussed with and agreed upon by patient/family including requesting consultants and ordering of imaging/procedures. Plan discussed with: Patient NYHA Physical activity limitations: Class3(Marked) ordinary Date of Service: Jul 19, 2025 Billing Provider: SIL HUTSON Cardiology Common Codes: [id number] INP/OBS CARE (High), [id number] CARE 30-74 MIN SIL HUTSON Jul 19, 2025 10:36
--- NOTE | 2025-07-19 12:36 | DVHPN2 ---
Objective Vitals Vital Signs Date Time Temp Pulse Resp B/P (MAP) Pulse Ox O2 Delivery O2 Flow Rate FiO2 07/19/25 10:25 83 126/83 07/19/25 09:00 97.8 18 96 97.8 07/18/25 20:00 Room Air* 0 21 Intake/Output Intake and Output 07/19/25 07:00 Intake Total 1170 ml Balance 1170 ml Intake Oral 1170 ml # Voids 16 Medications Current Medications Medications Dose Ordered Sig/Mary Route Start Time Stop Time Status Last Admin Dose Admin Acetaminophen/ Hydrocodone Bitart 1 tab Q4HP PRN PO 07/16/25 23:15 Ondansetron HCl 4 mg Q4HP PRN IV 07/16/25 23:15 07/18/25 06:39 4 MG Nitroglycerin 0.4 mg Q5MINP PRN SL 07/16/25 23:15 Morphine Sulfate 2 mg Q30M PRN IV 07/16/25 23:15 07/18/25 20:45 2 MG Atorvastatin Calcium 40 mg HS PO 07/17/25 00:45 07/18/25 20:45 40 MG Aspirin 81 mg DAILY PO 07/17/25 00:45 07/19/25 10:25 81 MG Acetaminophen 650 mg Q4HP PRN PO 07/17/25 07:30 Spironolactone 25 mg DAILY PO 07/17/25 10:00 07/19/25 10:25 25 MG Carvedilol 3.125 mg Q12HR PO 07/17/25 10:00 07/19/25 10:25 3.125 MG Furosemide 40 mg BIDD IV 07/17/25 18:00 07/19/25 05:32 40 MG Lisinopril 5 mg DAILY PO 07/20/25 10:00 Laboratory Results Laboratory Tests 07/19/25 05:38 Chemistry Test 07/19/25 05:38 Calcium Level 9.2 mg/dL (8.7-10.4) Urinalysis Test 07/17/25 23:00 Urine Color Yellow (Yellow) Urine Clarity Clear (Clear) Urine pH 6.5 (5.0-9.0) Urine Specific [place] 1.023 (1.001-1.035) Urine Protein 1+ (Negative) H Urine Ketones Negative (Negative) Urine Blood Negative /uL (Negative) Urine Nitrite Negative (Negative) Urine Bilirubin Negative (Negative) Urine Urobilinogen Normal mg/dL (Negative) Urine Leukocyte Esterase Negative /uL (Negative) Urine RBC 3 /hpf (0 - 3) Urine Microscopic WBC 1 /HPF (0-3) Urine Squamous Epithelial Cells None seen /hpf (<5) Urine Calcium Oxalate Crystals Few (None Seen) Urine Bacteria Few /hpf (None Seen) H Urine Mucus Few (None Seen) Urine Glucose Normal mg/dL (Normal) Assessment/Plan My Orders Orders - JAYDEN MCCLENDON MD Procedure Category Date Status Time Abg W/ Co-Ox RT 07/19/25 Logged 12:[address] 07/19/25 Logged Contrast 12:33 Discharge DISCHARGE 07/19/25 Transmitted 12:34 JAYDEN MCCLENDON MD Jul 19, 2025 12:36
--- NOTE | 2025-07-19 12:36 | DVHDS2 ---
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 Essential hypertension Hypertensive heart disease Dyslipidemia Non compliance with medical treatment. History of polysubstance abuse (heroin and tobacco) Labs/Diagnostic Data: Laboratory Results Test 07/19/25 05:38 07/17/25 23:00 07/17/25 16:11 07/17/25 09:39 White Blood Count 6.8 10^3/uL (4.4-10.8) Red Blood Count 4.87 10^6/uL (4.5-5.90) Hemoglobin 15.0 g/dL (13.5-17.5) Hematocrit 43.5 % (41.0-53.0) Mean Corpuscular Volume 89.3 fL (80.0-100.0) Mean Corpuscular Hemoglobin 30.9 pg (28.0-32.0) Mean Corpuscular Hemoglobin Concent 34.6 g/dL (32.0-36.0) Red Cell Distribution Width 14.4 % (11.8-14.3) Platelet Count 157 10^3/uL (140-450) Mean Platelet Volume 9.5 fL (6.9-10.8) Neutrophils (%) (Auto) 59.7 % (37.0-80.0) Lymphocytes (%) (Auto) 24.4 % (10.0-50.0) Monocytes (%) (Auto) 10.8 % (0.0-12.0) Eosinophils (%) (Auto) 4.1 % (0.0-7.0) Basophils (%) (Auto) 1.0 % (0.0-2.0) Neutrophils # (Auto) 4.1 10 ^3/uL (1.6-8.6) Lymphocytes # (Auto) 1.7 10 ^3/uL (0.4-5.4) Monocytes # (Auto) 0.7 10 ^3/uL (0-1.3) Eosinophils # (Auto) 0.3 10 ^3/uL (0-0.8) Basophils # (Auto) 0.1 10 ^3/uL (0-0.2) Nucleated Red Blood Cells 0.4 % Sodium Level 141 mmol/L (136-145) Potassium Level 3.6 mmol/L (3.5-5.1) Chloride Level 104 mmol/L (98-107) Carbon Dioxide Level 25 mmol/L (20-31) Anion Gap 12 (5-15) Blood Urea Nitrogen 20 mg/dL (9-23) Creatinine 1.14 mg/dL (0.700-1.30) Glomerular Filtration Rate Calc 75 mL/min (>90) BUN/Creatinine Ratio 17.5 (10.0-20.0) Serum Glucose 85 mg/dL (74-106) Calcium Level 9.2 mg/dL (8.7-10.4) Urine Color Yellow (Yellow) Urine Clarity Clear (Clear) Urine pH 6.5 (5.0-9.0) Urine Specific [place] 1.023 (1.001-1.035) Urine Protein 1+ (Negative) Urine Ketones Negative (Negative) Urine Blood Negative /uL (Negative) Urine Nitrite Negative (Negative) Urine Bilirubin Negative (Negative) Urine Urobilinogen Normal mg/dL (Negative) Urine Leukocyte Esterase Negative /uL (Negative) Urine RBC 3 /hpf (0 - 3) Urine Microscopic WBC 1 /HPF (0-3) Urine Squamous Epithelial Cells None seen /hpf (<5) Urine Calcium Oxalate Crystals Few (None Seen) Urine Bacteria Few /hpf (None Seen) Urine Mucus Few (None Seen) Urine Glucose Normal mg/dL (Normal) Urine Opiates Screen Neg (NEGATIVE) Urine Fentanyl Screen Neg (NEGATIVE) Urine Barbiturates Screen Neg (NEGATIVE) Urine Phencyclidine Screen Neg (NEGATIVE) Urine Amphetamines Screen Neg (NEGATIVE) Urine Benzodiazepines Screen Neg (NEGATIVE) Urine Cocaine Screen Neg (NEGATIVE) Urine Cannabinoids Screen Neg (NEGATIVE) Lactic Acid Level 1.8 mmol/L (0.4-2.0) Influenza Type A Antigen Negative (Negative) Influenza Type B Antigen Negative (Negative) Test 07/17/25 00:56 07/17/25 00:50 07/17/25 00:00 07/16/25 20:12 Iron Level 78 ug/dL (65-175) Total Iron Binding Capacity 336 ug/dL (250-425) Percent Iron Saturation 23.2 % (20-55) Ferritin 179.3 ng/mL (22-322) Total Bilirubin 0.6 mg/dL (0.2-1.0) Aspartate Amino Transferase (AST) 30 U/L (13-40) Alanine Aminotransferase (ALT) 42 U/L (7-40) Alkaline Phosphatase 97 U/L (46-116) C-Reactive Protein High Sensitivity 0.77 mg/dL (<1.0) Total Protein 7.0 g/dL (5.7-8.2) Albumin 4.2 g/dL (3.2-4.8) Triglycerides Level 182 mg/dL (< 150) Cholesterol Level 235 mg/dL (< 200) LDL Cholesterol 186 mg/dL (< 100) HDL Cholesterol 45 mg/dL (40-59) Vitamin B12 Level 460 pg/mL (211-911) Vitamin D 25-Hydroxy 30.7 ng/mL (30.0-100) Thyroid Stimulating Hormone (TSH) 1.38 uIU/mL (0.55-4.78) Plasma/Serum Blood Alcohol < 3.0 mg/dL (<10) Erythrocyte Sedimentation Rate 8 mm/hr (0-20) D-Dimer, Quantitative 0.72 mg/L FEU (0.0-0.49) B-Type Natriuretic Peptide 2760.45 pg/mL (0-100) SARS-CoV-2 Antigen (Rapid) Negative (NEGATIVE) Troponin I High Sensitivity 53 ng/L (</=54) Other Laboratory Tests 07/19/25 05:38 Brief Hx & Hospital Course: This is a 59 years old male with past medical history of congestive heart failure systolic type, hypertension, dyslipidemia, history pleural effusion came to emergency department because of shortness for breath and left-sided chest pain. Shortness for breath was persistent associated with sharp on and off chest pain rated 7/10. Is for severe and prevent him to go to work. The patient was admitted. Cardiology was consulted. Recommend 2D echo. The patient had echo done showed EF only 25%. The patient was given Lasix. The patient subsequently doing better. The patient will be discharged home today. Advised the patient to follow up with primary care physician 1-2 weeks. Follow up with furs salesperson per schedule. Activity as tolerated. Diet per home diet. Recommend low-salt low-cholesterol diet. Recommend compliant with his treatment of congestive heart failure. Follow up with furs salesperson per schedule. Physical exam: HEENT: Normocephalic atraumatic pupils equal react to light and accommodation. Extraocular muscles intact, conjunctiva pink, oropharynx moist, no thrush, no exudate. Lymphatic: No lymphadenopathy Cardiovascular exam: S1, S2 was heard. No murmurs, rubs, gallops Lung: Clear on auscultation bilaterally, no wheeze, rale, rhonchi. GI: Abdominal soft, nondistended, nontenderness, positive bowel sounds. Extremity: No crepitus, cyanosis, edema. Pedal pulses present bilateral. Full range of motion. Skin: Normal turgor, no rash. Psych: Alert, oriented x3. Neurology: No focal deficits, cranial nerve II to XII grossly intact. This medical document was created using an electronic medical record system with [employer] dictation system. Although this document has been carefully reviewed, there may still be some phonetic and typographical errors. These areas are purely typographical due to imperfections of the software programs, and do not reflect any compromise in the patient's medical care. 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 Essential hypertension Hypertensive heart disease Dyslipidemia Non compliance with medical treatment. History of polysubstance abuse (heroin and tobacco) Discharge Disposition: Home Discharge Instruct/Medications Diet: Consistent carbohydrate, Cardiac 2g Na,low cholest Activity: No Restrictions, As Tolerated Follow Up/Referral: Follow-up with PCP and furs salesperson in 1 week Medications: As per EMR Scheduled Aspirin (Aspirin Low Dose), 81 MG PO DAILY Atorvastatin Calcium (Atorvastatin Calcium), 40 MG PO HS Carvedilol (Coreg), 3.125 MG PO Q12HR Empagliflozin (Jardiance), 10 MG PO DAILY Furosemide (Furosemide), 40 MG PO DAILY Sacubitril-Valsartan (Entresto 24-26 mg), 1 TAB PO BID Spironolactone (Aldactone), 25 MG PO DAILY Scheduled PRN Acetaminophen (Acetaminophen), 650 MG PO Q4HP PRN Discharge Statement: "Patient was advised to return to the ER or call 911 if any headaches, dizziness, shortness of breath, chest pain, abdominal pain, bleeding, fevers, or worsening of medical condition. Patient was counseled about treatment plan, medications, possible side effects, patientverbalized understanding. All questions were answered to the best of my ability. This discharge took greater then 30 minutes in planning, reviewing documentation, counseling the patient, and discussing with other team members." ASSESSMENT ASSESSMENT Assessment Acute exacerbation of heart failure with reduced ejection fraction Date of Service: Jul 19, 2025 Billing Provider: JAYDEN MCCLENDON MD Common Visit Codes: 25614-RWP/OBS DISCH DAY >30min JAYDEN MCCLENDON MD Jul 19, 2025 12:36
[2025-07-19] MEDS ORDERED: IOHEXOL 350 MG/ML 100ML IJ ONE (14:41)
--- NOTE | 2025-07-19 15:37 | DVH ---
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 During the uneventful, intravenous administration of c ontrast material, multislice data acquisition was obtained through the chest. 3-D postprocessing is performed by technologist including MIP imaging Radiation Dose : CTDI vol 22.62 mGy, DLP 803.4 mGy*cm. Findings: Lungs: The lungs are clear. Pleura: Unremarkable Heart/Great vessels: Cardiomegaly. Severe coronary atherosclerosis. No pulmonary embolism or aneurysm . Mediastinum: Unremarkable Soft tissues/Bones: Unremarkable Left renal cysts. Impression: 1. No evidence of a pulmonary embolism, aneurysm, or dissection.
[2025-07-19] MEDS ORDERED: SACUBITRIL-VALSARTAN 24mg/26mg TAB PO SCH (22:00)
--- NOTE | 2025-07-19 22:33 | DVHINCON2 ---
Date Seen: Jul 19, 2025 Referring Physician Segundo Reason for Consultation Chest Pain History of Present Illness This i s a 59-year-old male with a PMH of HFrEF, cardiomyopathy, HTN, HLD, presents to the ED with complaints of shortness of breath, left-sided chest pain. Patient states began worsening shortness of breath, having chest pain left-sided sharp in nature intermittent nonradiating, worsens with deep inhalation. Patient endorses has had full cardiac workup within the last couple of months at [facility]. Previous angiogram with no blockages or occlusions. Patient also states he was previously offered and suggested to have implantation of defibrillator though refused and did not want to have it done. States he has been off his medications for a couple of months now since he moved from [place]. Upon evaluation in the ED patient found to have BNP of 2738, tropes negative x3, UDS. Chest x-ray is negative for congestion/edema. EKG reviewed and shows sinus tachycardia at 106 beats per minute, LVH, lateral ST and T-wave abnormality. Patient was admitted to the hospital. I am asked to consult on this patient. Past Medical History HTN HFrEF Nonischemic cardiomyopathy HLD Past Surgical History Coronary angiogram - per patient endorses no obstructive CAD Family History: Patient reports no known family medical history. Allergies: Coded Allergies: NO KNOWN ALLERGIES (Unverified , 07/16/25) Home Meds Active Scripts Empagliflozin (Jardiance) 10 Mg Tab, 10 MG PO DAILY for 30 Days, #30 TAB Prov:WANDA RADFORD 07/18/25 Sacubitril-Valsartan (Entresto 24-26 mg) 1 Tab Tab, 1 TAB PO BID for 30 Days, #60 TAB Prov:WANDA RADFORD 07/18/25 Spironolactone (Aldactone) 25 Mg Tab, 25 MG PO DAILY for 30 Days, #30 TAB Prov:WANDA RADFORD 07/18/25 Furosemide (Furosemide) 40 Mg Tab, 40 MG PO DAILY for 30 Days, #30 TAB Prov:WANDA RADFORD 07/18/25 Carvedilol (COREG) 3.125 Mg Tab, 3.125 MG PO Q12HR for 30 Days, #60 TAB Prov:WANDA RADFORD 07/18/25 Atorvastatin Calcium (ATORVASTATIN CALCIUM) 20 Mg Tab, 40 MG PO HS for 30 Days, #60 TAB Prov:WANDA RADFORD 07/18/25 Aspirin (Aspirin Low Dose) 81 Mg Tab, 81 MG PO DAILY for 30 Days, #30 TAB Prov:WANDA RADFORD 07/18/25 Acetaminophen (Acetaminophen) 325 Mg Tab, 650 MG PO Q4HP PRN for 15 Days, #150 TAB Prov:WANDA RADFORD 07/18/25 Current Medications Current Medications Medications (Trade) Dose Ordered Sig/Mary Route PRN Reason Start Time Stop Time Status Last Admin Lisinopril (Zestril Tablet) 5 mg DAILY PO 07/20/25 10:00 Review of Systems Constitutional: No: Fever, Chills, Sweats, Weakness, Malaise, Other Eyes: No: Pain, Vision change, Conjunctivae inflammation, Eyelid inflammation, Other, Redness ENT: No: Ear pain, Ear discharge, Nose pain, Nose discharge, Nose congestion, Mouth pain, Mouth swelling, Throat pain, Throat swelling, Other Respiratory: No: Cough, Dry, Shortness of breath, SOB with exertion, Wheezing, Hemoptysis, Pleuritic Pain, Sputum, Wheezing, Other Cardiovascular: ; No: Chest Pain Palpitations, Orthopnea, Paroxysmal Noc. Dyspnea, Edema, Lt Headedness, Other Gastrointestinal: No: Nausea, Vomiting, Abdominal Pain, Diarrhea, Constipation, Melena, Hematochezia, Other Genitourinary: No Dysuria, No Frequency, No Incontinence, No Hematuria, No Retention, No Other Musculoskeletal: neck pain; No: other, shoulder pain, arm pain, back pain, hand pain, leg pain, foot pain Skin: No: Rash, Lesions, Jaundice, Bruising, Other Neurological: Other (Dizziness, headache.); No: Weakness, Numbness, In coordination, Change in speech, Confusion, Seizures Vital Signs Vital Signs Date Time Temp Pulse Resp B/P (MAP) Pulse Ox O2 Delivery O2 Flow Rate FiO2 07/19/25 13:00 98.7 69 18 135/84 (101) 97 98.7 07/19/25 08:00 Nasal Cannula* 2 28 Physical Exam GENERAL: Alert and oriented x 3. No acute distress. EYES: PERRL, EOMI. Anicteric. HENT: Moist mucous membranes. LUNGS: Clear to auscultation bilaterally. CARDIOVASCULAR: Regular rate and rhythm. ABDOMEN: Soft, nontender and nondistended. EXTREMITIES: No edema. NEUROLOGIC: No focal neurological deficits. SKIN: Warm, dry. Labs/Diagnostic Data Labs Test 07/19/25 05:38 07/17/25 23:00 07/17/25 16:11 07/17/25 09:39 Range/Units White Blood Count 6.8 4.4-10.8 10^3/uL Red Blood Count 4.87 4.5-5.90 10^6/uL Hemoglobin 15.0 13.5-17.5 g/dL Hematocrit 43.5 41.0-53.0 % Mean Corpuscular Volume 89.3 80.0-100.0 fL Mean Corpuscular Hemoglobin 30.9 28.0-32.0 pg Mean Corpuscular Hemoglobin Concent 34.6 32.0-36.0 g/dL Red Cell Distribution Width 14.4 H 11.8-14.3 % Platelet Count 157 140-450 10^3/uL Mean Platelet Volume 9.5 6.9-10.8 fL Neutrophils (%) (Auto) 59.7 37.0-80.0 % Lymphocytes (%) (Auto) 24.4 10.0-50.0 % Monocytes (%) (Auto) 10.8 0.0-12.0 % Eosinophils (%) (Auto) 4.1 0.0-7.0 % Basophils (%) (Auto) 1.0 0.0-2.0 % Neutrophils # (Auto) 4.1 1.6-8.6 10 ^3/uL Lymphocytes # (Auto) 1.7 0.4-5.4 10 ^3/uL Monocytes # (Auto) 0.7 0-1.3 10 ^3/uL Eosinophils # (Auto) 0.3 0-0.8 10 ^3/uL Basophils # (Auto) 0.1 0-0.2 10 ^3/uL Nucleated Red Blood Cells 0.4 % Sodium Level 141 136-145 mmol/L Potassium Level 3.6 3.5-5.1 mmol/L Chloride Level 104 98-107 mmol/L Carbon Dioxide Level 25 20-31 mmol/L Anion Gap 12 5-15 Blood Urea Nitrogen 20 9-23 mg/dL Creatinine 1.14 0.700-1.30 mg/dL Glomerular Filtration Rate Calc 75 >90 mL/min BUN/Creatinine Ratio 17.5 10.0-20.0 Serum Glucose 85 74-106 mg/dL Calcium Level 9.2 8.7-10.4 mg/dL Urine Color Yellow Yellow Urine Clarity Clear Clear Urine pH 6.5 5.0-9.0 Urine Specific [place] 1.023 1.001-1.035 Urine Protein 1+ H Negative Urine Ketones Negative Negative Urine Blood Negative Negative /uL Urine Nitrite Negative Negative Urine Bilirubin Negative Negative Urine Urobilinogen Normal Negative mg/dL Urine Leukocyte Esterase Negative Negative /uL Urine RBC 3 0 - 3 /hpf Urine Microscopic WBC 1 0-3 /HPF Urine Squamous Epithelial Cells None seen <5 /hpf Urine Calcium Oxalate Crystals Few None Seen Urine Bacteria Few H None Seen /hpf Urine Mucus Few None Seen Urine Glucose Normal Normal mg/dL Urine Opiates Screen Neg NEGATIVE Urine Fentanyl Screen Neg NEGATIVE Urine Barbiturates Screen Neg NEGATIVE Urine Phencyclidine Screen Neg NEGATIVE Urine Amphetamines Screen Neg NEGATIVE Urine Benzodiazepines Screen Neg NEGATIVE Urine Cocaine Screen Neg NEGATIVE Urine Cannabinoids Screen Neg NEGATIVE Lactic Acid Level 1.8 0.4-2.0 mmol/L Influenza Type A Antigen Negative Negative Influenza Type B Antigen Negative Negative Test 07/17/25 00:56 07/17/25 00:50 07/17/25 00:00 07/16/25 20:12 Range/Units Iron Level 78 65-175 ug/dL Total Iron Binding Capacity 336 250-425 ug/dL Percent Iron Saturation 23.2 20-55 % Ferritin 179.3 22-322 ng/mL Total Bilirubin 0.6 0.2-1.0 mg/dL Aspartate Amino Transferase (AST) 30 13-40 U/L Alanine Aminotransferase (ALT) 42 H 7-40 U/L Alkaline Phosphatase 97 46-116 U/L C-Reactive Protein High Sensitivity 0.77 <1.0 mg/dL Total Protein 7.0 5.7-8.2 g/dL Albumin 4.2 3.2-4.8 g/dL Triglycerides Level 182 H < 150 mg/dL Cholesterol Level 235 H < 200 mg/dL LDL Cholesterol 186 H < 100 mg/dL HDL Cholesterol 45 40-59 mg/dL Vitamin B12 Level 460 211-911 pg/mL Vitamin D 25-Hydroxy 30.7 30.0-100 ng/mL Thyroid Stimulating Hormone (TSH) 1.38 0.55-4.78 uIU/mL Plasma/Serum Blood Alcohol < 3.0 <10 mg/dL Erythrocyte Sedimentation Rate 8 0-20 mm/hr D-Dimer, Quantitative 0.72 H 0.0-0.49 mg/L FEU B-Type Natriuretic Peptide 2760.45 0-100 pg/mL SARS-CoV-2 Antigen (Rapid) Negative NEGATIVE Troponin I High Sensitivity 53 </=54 ng/L Assessment Chest pain. Acute on chronic HFrEF. End-stage nonischemic dilated cardiomyopathy. HTN. HLD. Medication noncompliance. Plan/Recommendation I agree with your ongoing assessment and care of plan. Patient has been seen by Michael Brand NP on my behalf, him and I discussed the plan with the patient. Echo showing EF 15% severe global LV and RV hypokinesis. Severe pulmonary hypertension with RVSP 60 mmHg. Being diuresed with Lasix 40 mg IV twice daily. Monitor strict I&Os. Plan to continue with Lasix 40 mg daily p.o. upon discharge. GDMT with Coreg 3.125 mg p.o. twice daily, add lisinopril 5 mg p.o. daily continue spironolactone. Continues to not want AICD implantation, verbalizing risks including life- threatening arrhythmias leading to . Advised medication compliance and outpatient cardiology follow up. Additional plan as per the hospital course. Plan discussed with: Patient NYHA Physical activity limitations: Class3(Marked) ordinary Date of Service: Jul 19, 2025 Billing Provider: KAREN MARSHALL MD Cardiology Common Codes: 14941-YAWSBLP INP/OBS CARE (High) Cardiology Consultation Codes: 25324-[id number] CONSULT <45MIN KAREN MARSHALL MD Jul 19, 2025 14:40
--- NOTE | 2025-07-20 08:21 | ECG ---
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
--- NOTE | 2025-07-20 08:23 | ECG ---
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
[2025-07-20] MEDS ORDERED: LISINOPRIL 5 MG TAB PO SCH (10:00)
[2025-07-20] MEDS ORDERED: EMPAGLIFLOZIN 10 MG TAB PO SCH (10:00)
== END 2025-07-19 17:45 | disposition home or self-care (01) | DRG 133 ==
LOC: ER 15:39 → OVERFLOW 23:06 → TELE-WESTW 07-17 03:38
PROVIDERS: ADMIT Student in an Organized Health Care Education/Training Program; ATTEND Student in an Organized Health Care Education/Training Program
DX: J96.00 Acute respiratory failure, unspecified whether with hypoxia or hypercapnia (principal); I50.23 Acute on chronic systolic (congestive) heart failure; E87.20 Acidosis, unspecified; I16.0 Hypertensive urgency; I11.0 Hypertensive heart disease with heart failure; I27.20 Pulmonary hypertension, unspecified; Z20.822 Contact with and (suspected) exposure to COVID-19; E78.5 Hyperlipidemia, unspecified; I42.0 Dilated cardiomyopathy; I20.9 Angina pectoris, unspecified; Z79.899 Other long term (current) drug therapy; Z91.148 Patient's other noncompliance with medication regimen for other reason
CPT/HCPCS: 36415; 71045; 71275; 80048; 80053; 80061; 80307; 80320; 81001; 82306; 82607; 82728; 83540; 83550; 83605; 83880; 84443; 84484; 85025; 85379; 85652; 86141; 87426; 87804; 93005; 93306; 96374; 96375; 99291; G0378; J2405

== ENCOUNTER 2025-08-29 11:12 | Inpatient (IN) | payer OTHER ==
[~2025-08-29] VITALS: Ht 167.6 cm; Wt 72.0 kg
[~2025-08-29 11:12] MED LIST: ACET-1882 PO; ASPI-325 PO; ATOR20TA50 PO; CARV-214 PO; EMPA1TAB PO; FURO40TA4 PO; SACU1TAB PO; SPIR25TA PO
--- NOTE | 2025-08-29 11:25 | ECG ---
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
--- NOTE | 2025-08-29 12:46 | ED.PDOC ---
History of Present Illness HPI Comments 59 y/o M presents with c/c of shortness of breath. Patient reports onset of breathing problem, suddenly and unprovoked, last night, which has been ongoing since. Denies any chest pain, cough, congestion, fever, chills, or further acute symptoms. Significant history of acute respiratory failure secondary to CHF, HLD, HTN, and polysubstance abuse. Chief Complaint: Shortness of Breath Time Seen by MD: 12:30 Reviewed Notes: Nurses Notes, Medications, Allergies Allergies: Coded Allergies: NO KNOWN ALLERGIES (Unverified , 07/16/25) Home Meds Active Scripts Empagliflozin (Jardiance) 10 Mg Tab, 10 MG PO DAILY for 30 Days, #30 TAB Prov:WANDA RADFORD [facility] 07/18/25 Sacubitril-Valsartan (Entresto 24-26 mg) 1 Tab Tab, 1 TAB PO BID for 30 Days, #60 TAB Prov:WANDA RADFORD 07/18/25 Spironolactone (Aldactone) 25 Mg Tab, 25 MG PO DAILY for 30 Days, #30 TAB Prov:WANDA RADFORD [facility] 07/18/25 Furosemide (Furosemide) 40 Mg Tab, 40 MG PO DAILY for 30 Days, #30 TAB Prov:WANDA RADFORD [facility] 07/18/25 Carvedilol (COREG) 3.125 Mg Tab, 3.125 MG PO Q12HR for 30 Days, #60 TAB Prov:WANDA RADFORD [facility] 07/18/25 Atorvastatin Calcium (ATORVASTATIN CALCIUM) 20 Mg Tab, 40 MG PO HS for 30 Days, #60 TAB Prov:WANDA RADFORD 07/18/25 Aspirin (Aspirin Low Dose) 81 Mg Tab, 81 MG PO DAILY for 30 Days, #30 TAB Prov:WANDA RADFORD 07/18/25 Acetaminophen (Acetaminophen) 325 Mg Tab, 650 MG PO Q4HP PRN for 15 Days, #150 TAB Prov:WANDA RADFORD 07/18/25 Information Source: Patient Mode of Arrival: Ambulatory Severity: Moderate Timing: Hours Duration: Since onset Prehospital treatment: None Past Medical History PAST MEDICAL HISTORY: CHF, High Lipids, HTN Past Medical History (Other): Respiratory failure Surgical History: Denies all surgeries Family History Family History: Reviewed,noncontributory to illness Social History Smoker: Cigarettes Alcohol: Denies ETOH Use Drugs: Heroin Lives In: Home All Other Systems: Reviewed and Negative (Comprehensive review of systems are negative unless stated in HPI) Physical Exam General Appearance: Moderate Distress HEENT: Normal ENT Inspection, Pharynx Normal, TMs Normal Neck: Full Range of Motion, Non-Tender, Normal, Normal Inspection Respiratory: Accessory Muscle Use, Other (Coarse breath sounds) Cardiovascular: No Edema, No JVD, No Murmur, No Gallop, Normal Peripheral Pulses, Regular Rate/Rhythm Breast Exam: Deferred Gastrointestinal: No Organomegaly, Non Tender, No Pulsatile Mass, Normal Bowel Sounds, Soft Genitalia: Deferred Pelvic: Deferred Rectal: Deferred Extremities: No calf tenderness, Normal capillary refill, Normal inspection, Normal range of motion, Non-tender, No pedal edema Musculoskeletal : Apperance: Normal Neurologic: Alert, behavioral scientist II-XII nml as Tested, No Motor Deficits, Normal Affect, Normal Mood, No Sensory Deficits Cerebellar Function: Normal Reflexes: Normal Skin: Dry, Normal Color, Warm Peripheral Pulses: 3+ Radial (R), 3+ Radial (L) Lymphatic: No Adenopathy Was a procedure done? Was a procedure done?: No Differential Dx Considerations may include: Acute CHF exacerbation, PE, URI, PNA, SC, viral, among others X-Ray, Labs, Meds, VS Vital Signs Date Time Temp Pulse Resp B/P (MAP) Pulse Ox O2 Delivery O2 Flow Rate FiO2 08/29/25 14:07 93 17 95 Room Air* 0 21 08/29/25 13:49 95 Room Air* 0 21 08/29/25 13:39 97.9 94 20 145/95 (112) 95 97.9 08/29/25 13:39 94 20 95 Room Air 08/29/25 13:30 147/93 08/29/25 11:23 89 08/29/25 11:15 97.8 92 18 148/97 100 97.8 Lab Test 08/29/25 13:12 08/29/25 13:01 Range/Units Urine Color Light-yellow Yellow Urine Clarity Clear Clear Urine pH 7.0 5.0-9.0 Urine Specific [place] 1.017 1.001-1.035 Urine Protein 1+ H Negative Urine Ketones Negative Negative Urine Blood Negative Negative /uL Urine Nitrite Negative Negative Urine Bilirubin Negative Negative Urine Urobilinogen Normal Negative mg/dL Urine Leukocyte Esterase Negative Negative /uL Urine RBC <1 0 - 3 /hpf Urine Microscopic WBC < 1 0-3 /HPF Urine Squamous Epithelial Cells None seen <5 /hpf Urine Bacteria None seen None Seen /hpf Urine Glucose 4+ H Normal mg/dL White Blood Count 9.6 4.4-10.8 10^3/uL Red Blood Count 5.14 4.5-5.90 10^6/uL Hemoglobin 15.8 13.5-17.5 g/dL Hematocrit 47.9 41.0-53.0 % Mean Corpuscular Volume 93.2 80.0-100.0 fL Mean Corpuscular Hemoglobin 30.7 28.0-32.0 pg Mean Corpuscular Hemoglobin Concent 32.9 32.0-36.0 g/dL Red Cell Distribution Width 15.2 H 11.8-14.3 % Platelet Count 178 140-450 10^3/uL Mean Platelet Volume 9.8 6.9-10.8 fL Neutrophils (%) (Auto) 73.8 37.0-80.0 % Lymphocytes (%) (Auto) 17.1 10.0-50.0 % Monocytes (%) (Auto) 7.4 0.0-12.0 % Eosinophils (%) (Auto) 1.0 0.0-7.0 % Basophils (%) (Auto) 0.7 0.0-2.0 % Neutrophils # (Auto) 7.1 1.6-8.6 10 ^3/uL Lymphocytes # (Auto) 1.6 0.4-5.4 10 ^3/uL Monocytes # (Auto) 0.7 0-1.3 10 ^3/uL Eosinophils # (Auto) 0.1 0-0.8 10 ^3/uL Basophils # (Auto) 0.1 0-0.2 10 ^3/uL Nucleated Red Blood Cells 0.2 % Sodium Level 146 H 136-145 mmol/L Potassium Level 4.0 3.5-5.1 mmol/L Chloride Level 110 H 98-107 mmol/L Carbon Dioxide Level 25 20-31 mmol/L Anion Gap 11 5-15 Blood Urea Nitrogen 16 9-23 mg/dL Creatinine 1.11 0.700-1.30 mg/dL Glomerular Filtration Rate Calc 77 >90 mL/min BUN/Creatinine Ratio 14.4 10.0-20.0 Serum Glucose 96 74-106 mg/dL Calcium Level 8.6 L 8.7-10.4 mg/dL Troponin I High Sensitivity 39 </=54 ng/L B-Type Natriuretic Peptide 3395.49 0-100 pg/mL Current Medications Medications (Trade) Dose Ordered Sig/Mary Route Start Time Stop Time Status Last Admin Furosemide (Lasix Injection) 40 mg ONCE ONCE IV 08/29/25 13:00 08/29/25 13:01 DC 08/29/25 13:30 [place] [id number] Ph: [phone] DIAGNOSTIC IMAGING Diagnostic Imaging Report : [id number] Signed PATIENT: JORGE MCCLENDON ACCT: [id number] UNIT: [id number] : 1965 LOC: ER ROOM / BED: / AGE / SEX: 59 / M ADM STATUS: REG ER SERVICE 1230 ORDERING PHYSICIAN: KAYLIN PENN MD PROCEDURE(s): CXRP - CHEST PORTABLE REASON: sob ORDER NUMBER(s): [id number], ACCESSION NUMBER(s): [id number] CHEST RADIOGRAPH Indication: sob Technique: Single frontal view of the chest was obtained Comparison: XY CHEST PORTABLE on DOS: 07/16/25 FINDINGS: Lines and Tubes: None Lungs: No focal consolidation. Pleura: No effusion. No pneumothorax. Cardiomediastinal contours: Unremarkable Bones: No acute osseous abnormality. IMPRESSION: 1. No acute cardiopulmonary disease. ATED BY: SARA PENN Jr., DO DICTATED DATE/TIME: 08/29/25 1254 SIGNED BY: SARA PENN Jr., SIGNED DATE/TIME: 08/29/25 125 CC: Patient alert. Complaining of shortness a breath. He is using his accessory muscles pain Saturation pristine on room air. History of coronary artery disease with stent placement. Possible CHF. Was given Lasix. EKG reviewed does not show any acute process. Explained to the patient. Continue to monitor. Time of 1ST Reevaluation: 13:00 Reevaluation 1ST: Unchanged Patient Education/Counseling: Diagnosis, Treatment Family Education/Counseling: No Family Present SEPSIS Sepsis Screen Date sepsis recognized/suspect: Aug 29, 2025 Time Sepsis recognized/suspect: 1117 Recent Procedure: No On Antibiotic Therapy: No Respiratory Rate >20: No Heart Rate >90: Yes Temp<36 C (96.8 F) or >38.3 C: No SBP <90 or MAP <65 mmHG: No New Acute Mental Status Change: No Is the patient on CPAP, BIPAP,: No Physician Orders Chest Portable (08/29/25 12:30) Vital Signs Date Time Temp Pulse Resp B/P (MAP) Pulse Ox O2 Delivery O2 Flow Rate FiO2 08/29/25 14:07 93 17 95 Room Air* 0 21 08/29/25 13:49 95 Room Air* 0 21 08/29/25 13:39 97.9 94 20 145/95 (112) 95 97.9 08/29/25 13:39 94 20 95 Room Air 08/29/25 13:30 147/93 08/29/25 11:23 89 08/29/25 11:15 97.8 92 18 148/97 100 97.8 Laboratory Tests Test 08/29/25 13:01 White Blood Count 9.6 10^3/uL (4.4-10.8) Medications Medications Dose Ordered Sig/Mary Route Start Time Stop Time Status Last Admin Dose Admin Furosemide 40 mg ONCE ONCE IV 08/29/25 13:00 08/29/25 13:01 DC 08/29/25 13:30 Departure 1 Departure Time of Disposition: 12:55 Impression: Primary Impression: CHF (congestive heart failure) Qualified Codes: I50.43 - Acute on chronic combined systolic (congestive) and diastolic (congestive) heart failure Disposition: ADMITTED INPATIENT Admit to: Med Surg Condition: Guarded Critical Care Note Critical Care Time?: Yes (90 min-critical care time only) Stability Stability form required: No Heart Score Heart Score: Heart Score Response (Comments) Value History Moderate Suspicious 1 EKG Normal 0 Age 45-64 1 Risk Factors >3 or Hx ASHD 2 Troponin Normal limit 0 Total 4 I personally scribed for KAYLIN PENN MD ([email or web address]) on 08/29/25 at 12:46. Electronically submitted by Wilian Sevilla ([email or web address]). I personally scribed for KAYLIN PENN MD ([email or web address]) on 08/29/25 at 14:32. Electronically submitted by Wilian Sevilla ([email or web address]). KAYLIN PENN MD Aug 29, 2025 12:46
--- NOTE | 2025-08-29 12:57 | DVH ---
CHEST RADIOGRAPH Indication: sob Technique: Single frontal view of the chest was obtained Comparison: XY CHEST PORTABLE on DOS: 07/16/25 FINDINGS: Lines and Tubes: None Lungs: No focal consolidation. Pleura: No effusion. No pneumothorax. Cardiomediastinal contours: Unremarkable Bones: No acute osseous abnormality. IMPRESSION: 1. No acute cardiopulmonary disease.
[2025-08-29 13:13] LABS: Hematocrit 47.9 % (41.0-53.0); Hemoglobin 15.8 g/dL (13.5-17.5); Mean Corpuscular Hemoglobin 30.7 pg (28.0-32.0); Mean Corpuscular Volume 93.2 fL (80.0-100.0); Nucleated Red Blood Cells % 0.2 %
[2025-08-29 13:19] LABS: Potassium 4.0 mmol/L (3.5-5.1)
[2025-08-29 13:20] LABS: Urine Protein, UAD 1+ (Negative)
[2025-08-29 13:21] LABS: Anion Gap 11 (5-15); Carbon Dioxide 25 mmol/L (20-31)
[2025-08-29 13:25] LABS: Calcium 8.6 mg/dL (8.7-10.4); Chloride 110 mmol/L (98-107); Sodium 146 mmol/L (136-145)
[2025-08-29 13:26] LABS: BUN/Creatinine Ratio 14.4 (10.0-20.0); Blood Urea Nitrogen 16 mg/dL (9-23); Glucose 96 mg/dL (74-106)
[2025-08-29] MEDS: FUROSEMIDE 40 MG/4 ML VIAL IV ONE (13:30)
[2025-08-29 14:07] VITALS: PULSE 93; RESP 17; O2SAT 95
[2025-08-29] MEDS ORDERED: DOCUSATE SOD 100 MG CAP PO PRN (20:00)
[2025-08-29] MEDS ORDERED: ONDANSETRON HCL 4 MG/2 ML VIAL IV PRN (20:00)
[2025-08-29] MEDS ORDERED: HYDROcodone-ACET 5/325MG TAB PO PRN (20:00)
--- NOTE | 2025-08-29 20:38 | DVHHP2 ---
History of Present Illness Reason for Visit: Acute on chronic systolic congestive heart failure History of Present Illness The patient is a 59-year-old male with past medical history of CHF, hyperlip idemia, and hypertension who presented to [facility] ED with complaint of shortness of breaths. Patient reports he has been experiencing sudden unprovoked difficulty breathing, shortness of breaths at rest, increased work of breathing, getting worse that prompted this visit. Patient was seen and evaluated in the ED, laboratory data shows WBC 9.6, platelets 178, sodium 146, potassium 4.0, BUN 16, creatinine 1.11, glucose 96, calcium 9.6, troponin 36, BNP 3395.49, blood pressure 149/84, heart rate 96, temperature 97.6 F, O2 saturation 96% on oxygen. Chest x-ray show no acute cardiopulmonary disease. Patient was started on IV Lasix, please see medication orders section in the computer. On my assessment, patient denied chest pain, no headache, dizziness, diaphoresis, currently on oxygen, no diarrhea, nausea, vomiting, fever, no chills. Patient was admitted for further evaluation and medical management. Past Medical History CHF, High Lipids, HTN, Respiratory failure Past Surgical History Denies all surgeries Family History Reviewed, noncontributory to the management of this case. Past Social History The patient lives at home, denies smoking, alcohol or illicit drugs abuse. Review of Systems Constitutional: Yes: Weakness; No: Fever, Chills, Sweats, Malaise, Other Eyes: No: Pain, Vision change, Conjunctivae inflammation, Eyelid inflammation, Other, Redness ENT: No: Ear pain, Ear discharge, Nose pain, Nose discharge, Nose congestion, Mouth pain, Mouth swelling, Throat pain, Throat swelling, Other Respiratory: Shortness of breath, Other (SOB at rest); No: Cough, Dry, SOB with excertion, Wheezing, Hemoptysis, Pleuritic Pain, Sputum, Wheezing Cardiovascular: No: Chest Pain, Palpitations, Orthopnea, Paroxysmal Noc. Dyspnea, Edema, Lt Headedness, Other Gastrointestinal: No: Nausea, Vomiting, Abdominal Pain, Diarrhea, Constipation, Melena, Hematochezia, Other Genitourinary: No Dysuria, No Frequency, No Incontinence, No Hematuria, No Retention, No Other Musculoskeletal: No: other, neck pain, shoulder pain, arm pain, back pain, hand pain, leg pain, foot pain Skin: No: Rash, Lesions, Jaundice, Bruising, Other Neurological: No: Weakness, Numbness, Incoordination, Change in speech, Confusion, Seizures, Other Allergies: Coded Allergies: NO KNOWN ALLERGIES (Unverified , 07/16/25) Medications Current Medications Medications Dose Ordered Sig/Mary Route Start Time Stop Time Status Last Admin Dose Admin Aspirin 81 mg DAILY PO 08/30/25 10:00 Furosemide 40 mg DAILY IV 08/30/25 10:00 Atorvastatin Calcium 20 mg HS PO 08/29/25 22:00 Sodium Chloride 10 ml Q8HR IV 08/29/25 22:00 Acetaminophen/ Hydrocodone Bitart 1 tab Q4HP PRN PO 08/29/25 20:00 Ondansetron HCl 4 mg Q4HP PRN IV 08/29/25 20:00 Docusate Sodium 100 mg BIDPRN PRN PO 08/29/25 20:00 Acetaminophen 650 mg Q6HP PRN PO 08/29/25 20:00 Exam Vital Signs Vital Signs Date Time Temp Pulse Resp B/P (MAP) Pulse Ox O2 Delivery O2 Flow Rate FiO2 08/29/25 20:06 98.1 87 18 152/108 (123) 99 98.1 08/29/25 14:07 Room Air* 0 21 General Appearance: Alert, Oriented X3, Cooperative, No acute distress HEENT: Atraumatic, PERRLA, EOMI, Mucous membr. moist/pink Respiratory: Normal air movement, Other (Currently on oxygen) Cardiovascular: Regular rate, Normal S1, Normal S2, No murmurs Abdominal: Normal bowel sounds, Soft, No tenderness, No hepatospenomegaly, No masses Extremities: No clubbing, No cyanosis, No edema, Normal pulses, No tenderness/swelling Skin: No rashes, No breakdown Neuro: Normal speech, Normal tone, Sensation intact, Cranial nerves 3-12 NL, Reflexes 2+, Other (Generalized weakness) Psych/Mental Status: Mental status NL, Mood NL Labs/Xrays Labs Test 08/29/25 13:12 08/29/25 13:01 Range/Units Urine Color Light-yellow Yellow Urine Clarity Clear Clear Urine pH 7.0 5.0-9.0 Urine Specific [place] 1.017 1.001-1.035 Urine Protein 1+ H Negative Urine Ketones Negative Negative Urine Blood Negative Negative /uL Urine Nitrite Negative Negative Urine Bilirubin Negative Negative Urine Urobilinogen Normal Negative mg/dL Urine Leukocyte Esterase Negative Negative /uL Urine RBC <1 0 - 3 /hpf Urine Microscopic WBC < 1 0-3 /HPF Urine Squamous Epithelial Cells None seen <5 /hpf Urine Bacteria None seen None Seen /hpf Urine Glucose 4+ H Normal mg/dL White Blood Count 9.6 4.4-10.8 10^3/uL Red Blood Count 5.14 4.5-5.90 10^6/uL Hemoglobin 15.8 13.5-17.5 g/dL Hematocrit 47.9 41.0-53.0 % Mean Corpuscular Volume 93.2 80.0-100.0 fL Mean Corpuscular Hemoglobin 30.7 28.0-32.0 pg Mean Corpuscular Hemoglobin Concent 32.9 32.0-36.0 g/dL Red Cell Distribution Width 15.2 H 11.8-14.3 % Platelet Count 178 140-450 10^3/uL Mean Platelet Volume 9.8 6.9-10.8 fL Neutrophils (%) (Auto) 73.8 37.0-80.0 % Lymphocytes (%) (Auto) 17.1 10.0-50.0 % Monocytes (%) (Auto) 7.4 0.0-12.0 % Eosinophils (%) (Auto) 1.0 0.0-7.0 % Basophils (%) (Auto) 0.7 0.0-2.0 % Neutrophils # (Auto) 7.1 1.6-8.6 10 ^3/uL Lymphocytes # (Auto) 1.6 0.4-5.4 10 ^3/uL Monocytes # (Auto) 0.7 0-1.3 10 ^3/uL Eosinophils # (Auto) 0.1 0-0.8 10 ^3/uL Basophils # (Auto) 0.1 0-0.2 10 ^3/uL Nucleated Red Blood Cells 0.2 % Sodium Level 146 H 136-145 mmol/L Potassium Level 4.0 3.5-5.1 mmol/L Chloride Level 110 H 98-107 mmol/L Carbon Dioxide Level 25 20-31 mmol/L Anion Gap 11 5-15 Blood Urea Nitrogen 16 9-23 mg/dL Creatinine 1.11 0.700-1.30 mg/dL Glomerular Filtration Rate Calc 77 >90 mL/min BUN/Creatinine Ratio 14.4 10.0-20.0 Serum Glucose 96 74-106 mg/dL Calcium Level 8.6 L 8.7-10.4 mg/dL Troponin I High Sensitivity 39 </=54 ng/L B-Type Natriuretic Peptide 3395.49 0-100 pg/mL PATIENT: JORGE MCCLENDON ACCT: [id number] UNIT: [id number] : 1965 LOC: ER ROOM / BED: / AGE / SEX: 59 / M ADM STATUS: REG ER SERVICE 1230 ORDERING PHYSICIAN: KAYLIN PENN MD PROCEDURE(s): CXRP - CHEST PORTABLE REASON: sob ORDER NUMBER(s): [id number], ACCESSION NUMBER(s): [id number] CHEST RADIOGRAPH Indication: sob Technique: Single frontal view of the chest was obtained Comparison: XY CHEST PORTABLE on DOS: 07/16/25 FINDINGS: Lines and Tubes: None Lungs: No focal consolidation. Pleura: No effusion. No pneumothorax. Cardiomediastinal contours: Unremarkable Bones: No acute osseous abnormality. IMPRESSION: 1. No acute cardiopulmonary disease. SEPSIS Sepsis Screen Date sepsis recognized/suspect: Aug 29, 2025 Time Sepsis recognized/suspect: 1409 Recent Procedure: No On Antibiotic Therapy: No Respiratory Rate >20: No Heart Rate >90: No Temp<36 C (96.8 F) or >38.3 C: No SBP <90 or MAP <65 mmHG: No New Acute Mental Status Change: No Is the patient on CPAP, BIPAP,: No Physician Orders Aspirin Tablet (08/30/25 10:00) Furosemide Injection (Lasix Injection) (08/30/25 10:00) Atorvastatin (Lipitor) (08/29/25 22:00) Allergies (08/29/25 19:59) Code Status (08/29/25 19:59) Sodium Chloride Lock (Saline Lock Ns) (08/29/25 22:00) Oxygen Per Hour (08/29/25 19:59) Hydrocodone-Acet 5/325mg Tab ([place] 5/32 (08/29/25 20:00) Ondansetron Hcl (Zofran) (08/29/25 20:00) Docusate Sodium Capsule (Colace Capsule) (08/29/25 20:00) Complete Blood Count (08/30/25 04:00) Comprehensive Metabolic Panel (08/30/25 04:00) Cardiac Diet-2gna,Lofat,Lochol (08/30/25 Breakfast) Condition: Serious (08/29/25 19:59) Acetaminophen Tablet (Tylenol Tablet) (08/29/25 20:00) Bedrest With Bathroom Privileg (08/29/25 19:59) Sequential Compression Device (08/29/25 ) Admit (08/29/25 20:37) Nitroglycerin Sublingual (Ntrostat Subli (08/29/25 20:45) Morphine Sulfate Injection (08/29/25 20:45) Stat Ekg For Chest Pain (08/29/25 20:37) Notify Of Changes From Base (08/29/25 20:37) Executive Vice President Business Development For 24 Hours (08/29/25 20:37) Emergency Dysrhythmia Protocol (08/29/25 20:37) Rhythm Strips Once Every Shift (08/29/25 20:37) Oxygen By Nasal Cannula (08/29/25 20:37) Vital Signs Date Time Temp Pulse Resp B/P (MAP) Pulse Ox O2 Delivery O2 Flow Rate FiO2 08/29/25 20:06 98.1 87 18 152/108 (123) 99 98.1 08/29/25 16:14 97.3 96 20 149/84 (105) 96 97.3 08/29/25 14:07 93 17 95 Room Air* 0 21 08/29/25 13:49 95 Room Air* 0 21 08/29/25 13:39 97.9 94 20 145/95 (112) 95 97.9 08/29/25 13:39 94 20 95 Room Air 08/29/25 13:30 147/93 Laboratory Tests Test 08/29/25 13:01 White Blood Count 9.6 10^3/uL (4.4-10.8) Medications Medications Dose Ordered Sig/Mary Route Start Time Stop Time Status Last Admin Dose Admin Furosemide 40 mg ONCE ONCE IV 08/29/25 13:00 08/29/25 13:01 DC 08/29/25 13:30 40 MG Assessment/Plan Assessment/Plan Acute respiratory distress Generalized weakness Acute on chronic systolic congestive heart failure Plan 1. Admit to telemetry unit 2. Breathing treatment 3. Pain control management 4. Management of fluids and electrolytes 5. Consultation for hospitalist 6. Diagnostic tests chest x-ray 7. DVT prophylaxis-on aspirin 8. Repeat labs CBC, CMP in a.m. 9. Continue with current medical management 10. Treatment plan discussed with patient and RN. Patient verbalized understanding. Plan discussed with: Patient, Other (RN) My Orders Orders - MAIRA VELASQUEZ DNP Procedure Category Date Status Time Aspirin Tablet PHA 08/30/25 In Process 10:00 Furosemide Injection PHA 08/30/25 In Process (Lasix Injection) 10:00 Atorvastatin (Lipitor) PHA 08/29/25 In Process 22:00 Allergies KEYSHA 08/29/25 In Process 19:59 Code Status CODE 08/29/25 Transmitted 19:59 Sodium Chloride Lock PHA 08/29/25 In Process (Saline Lock Ns) 22:00 Oxygen Per Hour RT 08/29/25 Transmitted 19:59 Hydrocodone-Acet PHA 08/29/25 In Process 5/325mg Tab ([place] 20:00 Ondansetron Hcl PHA 08/29/25 In Process (Zofran) 20:00 Docusate Sodium PHA 08/29/25 In Process Capsule (Colace 20:00 Complete Blood Count LAB 08/30/25 Verified 04:00 Comprehensive LAB 08/30/25 Verified Metabolic Panel 04:00 Cardiac DIET 08/30/25 Transmitted Diet-2gna,Lofat,Lochol Breakfast Condition: Serious KEYSHA 08/29/25 In Process 19:59 Acetaminophen Tablet PHA 08/29/25 In Process (Tylenol Tablet) 20:00 Bedrest With Bathroom KEYSHA 08/29/25 In Process Privileg 19:59 Sequential KEYSHA 08/29/25 In Process Compression Device Admit ADMIT 08/29/25 Verified 20:37 Nitroglycerin PHA 08/29/25 Verified Sublingual (Ntrostat 20:45 Morphine Sulfate PHA 08/29/25 Verified Injection 20:45 Stat Ekg For Chest [facility] 08/29/25 Verified Pain 20:37 Notify Of Changes [facility] 08/29/25 Verified From Base 20:37 Executive Vice President Business Development For [facility] 08/29/25 Verified 24 Hours 20:37 Emergency Dysrhythmia [facility] 08/29/25 Verified Protocol 20:37 Rhythm Strips Once [facility] 08/29/25 Verified Every Shift 20:37 Oxygen By Nasal RT 08/29/25 Verified Cannula 20:37 Problem List: (1) Acute respiratory distress (2) Generalized weakness (3) Acute on chronic systolic congestive heart failure Date of Service: Aug 29, 2025 Billing Provider: MAIRA VELASQUEZ DNP Common Visit Codes: 50567-ADPMBQC INP/OBS CARE (HIGH) MAIRA VELASQUEZ DNP Aug 29, 2025 20:38
[2025-08-29] MEDS ORDERED: MORPHINE SULFATE INJ 2 MG/ml SYRG IV PRN (20:45)
[2025-08-29 21:42] VITALS: BP 157/107; PULSE 84; RESP 18; TEMP 98.2; O2SAT 98
[2025-08-29] MEDS: SODIUM CHLOR 0.9% PF (SALINE LOCK) 10ML VIAL/SYR IV SCH (22:28)
[2025-08-29] MEDS: ATORVASTATIN 20 MG TAB PO SCH (22:28)
[2025-08-30] VITALS (9 sets, daily range): BP systolic 100–166; BP diastolic 69–111; PULSE 61–102; RESP 6–19; TEMP 97.3–98.1; O2SAT 94–100
[2025-08-30 04:38] LABS: Hematocrit 49.2 % (41.0-53.0); Hemoglobin 16.9 g/dL (13.5-17.5); Mean Corpuscular Hemoglobin 31.2 pg (28.0-32.0); Mean Corpuscular Volume 91.1 fL (80.0-100.0); Nucleated Red Blood Cells % 0.2 %
[2025-08-30 05:08] LABS: Albumin 4.0 g/dL (3.2-4.8); Alkaline Phosphatase 105 U/L (46-116); Anion Gap 11 (5-15); BUN/Creatinine Ratio 13.2 (10.0-20.0); Blood Urea Nitrogen 12 mg/dL (9-23); Calcium 9.0 mg/dL (8.7-10.4); Carbon Dioxide 22 mmol/L (20-31); Glucose 98 mg/dL (74-106); Potassium 3.6 mmol/L (3.5-5.1); Sodium 142 mmol/L (136-145); Total Protein 7.1 g/dL (5.7-8.2)
[2025-08-30 05:09] LABS: Bilirubin, Total 0.6 mg/dL (0.2-1.0)
[2025-08-30 05:26] LABS: Alanine Aminotransferase 76 U/L (7-40); Chloride 109 mmol/L (98-107)
[2025-08-30] MEDS: FUROSEMIDE 40 MG/4 ML VIAL IV SCH (08:44)
[2025-08-30] MEDS: CARVEDILOL 3.125 MG TAB PO SCH (08:45)
[2025-08-30] MEDS: MELATONIN 5 MG TAB PO ONE ×2 (22:47→22:50)
--- NOTE | 2025-08-30 23:40 | DVHPN2 ---
Subjective The patient is seen and examined at bedside. Complain of severe shortness for breath. Reviewed: Care Plan, H&P, Labs, Medications, Previous Orders, Radiology Changes from previous H/P or p: No Changes Eyes: No Pain, No Vision change, No Conjunctivae inflammation, No Eyelid inflammation, No Other, No Redness ENT: No Ear pain, No Ear discharge, No Nose pain, No Nose discharge, No Nose congestion, No Mouth pain, No Mouth swelling, No Throat pain, No Throat swelling, No Other Cardiovascular: No Chest Pain, No Palpitations, No Orthopnea, No Paroxysmal Noc. Dyspnea, No Edema, No Lt Headedness, No Other Respiratory: No Cough, No Dry; Shortness of breath; No SOB with excertion, No Wheezing, No Hemoptysis, No Pleuritic Pain, No Sputum; Other (SOB at rest) Gastrointestinal: No Nausea, No Vomiting, No Abdominal Pain, No Diarrhea, No Constipation, No Melena, No Hematochezia, No Other Genitourinary: No Dysuria, No Frequency, No Incontinence, No Hematuria, No Retention, No Other Musculoskeletal: No other, No neck pain, No shoulder pain, No arm pain, No back pain, No hand pain, No leg pain, No foot pain Skin: No Rash, No Lesions, No Jaundice, No Bruising, No Other Objective Vitals Vital Signs Date Time Temp Pulse Resp B/P (MAP) Pulse Ox O2 Delivery O2 Flow Rate FiO2 08/30/25 22:21 61 129/89 08/30/25 21:00 97.9 19 95 97.9 08/30/25 08:00 Room Air* 0 21 General Appearance: Alert, Oriented X3, Cooperative, No acute distress HEENT: Atraumatic, PERRLA, EOMI, Mucous membr. moist/pink Neck: Supple Lungs: Clear to auscultation, Normal air movement Cardiovascular: Regular rate, Normal S1, Normal S2, No murmurs, Gallops, Rubs Abdomen: Normal bowel sounds, Soft, No tenderness, No hepatospenomegaly Neuro: Cranial nerves 3-12 NL Psych/Mental Status: Mental status NL Medications Current Medications Medications Dose Ordered Sig/Mary Route Start Time Stop Time Status Last Admin Dose Admin Aspirin 81 mg DAILY PO 08/30/25 10:00 08/30/25 08:45 81 MG Furosemide 40 mg DAILY IV 08/30/25 10:00 08/30/25 08:44 40 MG Atorvastatin Calcium 20 mg HS PO 08/29/25 22:00 08/30/25 22:21 20 MG Sodium Chloride 10 ml Q8HR IV 08/29/25 22:00 08/30/25 22:20 10 ML Acetaminophen/ Hydrocodone Bitart 1 tab Q4HP PRN PO 08/29/25 20:00 Ondansetron HCl 4 mg Q4HP PRN IV 08/29/25 20:00 Docusate Sodium 100 mg BIDPRN PRN PO 08/29/25 20:00 Acetaminophen 650 mg Q6HP PRN PO 08/29/25 20:00 Nitroglycerin 0.4 mg Q5MINP PRN SL 08/29/25 20:45 Morphine Sulfate 2 mg Q30M PRN IV 08/29/25 20:45 Carvedilol 6.25 mg Q12HR PO 08/30/25 10:00 08/30/25 22:21 6.25 MG Clonidine HCl 0.1 mg Q4HP PRN PO 08/30/25 05:00 Laboratory Results Laboratory Tests 08/30/25 04:11 Chemistry Test 08/30/25 04:11 Albumin 4.0 g/dL (3.2-4.8) Calcium Level 9.0 mg/dL (8.7-10.4) Total Protein 7.1 g/dL (5.7-8.2) LFT Test 08/30/25 04:11 Alanine Aminotransferase (ALT) 76 U/L (7-40) H Alkaline Phosphatase 105 U/L (46-116) Aspartate Amino Transferase (AST) 40 U/L (13-40) Total Bilirubin 0.6 mg/dL (0.2-1.0) Urinalysis Test 08/29/25 13:12 Urine Color Light-yellow (Yellow) Urine Clarity Clear (Clear) Urine pH 7.0 (5.0-9.0) Urine Specific [place] 1.017 (1.001-1.035) Urine Protein 1+ (Negative) H Urine Ketones Negative (Negative) Urine Blood Negative /uL (Negative) Urine Nitrite Negative (Negative) Urine Bilirubin Negative (Negative) Urine Urobilinogen Normal mg/dL (Negative) Urine Leukocyte Esterase Negative /uL (Negative) Urine RBC <1 /hpf (0 - 3) Urine Microscopic WBC < 1 /HPF (0-3) Urine Squamous Epithelial Cells None seen /hpf (<5) Urine Bacteria None seen /hpf (None Seen) Urine Glucose 4+ mg/dL (Normal) H Microbiology Microbiology Date/Time Source Procedure Growth Status 08/29/25 22:33 Nose MRSA Screen - Final Complete Labs and/or images reviewed: Labs reviewed by me, Image(s) reviewed by me Assessment/Plan Assessment/Plan Acute respiratory distress Generalized weakness Acute on chronic systolic congestive heart failure Hypertension Hyperlipidemia Plan Continuing current management Continuing with IV Lasix Continuing with nebulizer for breathing treatment Continuing with Coreg Continuing with Lipitor This medical document was created using an electronic medical record system with [employer] direct computerized dictation system. Although this document has been carefully reviewed, there may still be some phonetic and typographical errors. These areas are purely typographical due to imperfections of the software programs, and do not reflect any compromise in the patient's medical care. Plan discussed with: Patient Date of Service: Aug 30, 2025 Billing Provider: JAYDEN MCCLENDON MD Common Visit Codes: [id number] INP/OBS CARE(HIGH) JAYDEN MCCLENDON MD Aug 30, 2025 23:40
[2025-08-31] VITALS (7 sets, daily range): BP systolic 121–140; BP diastolic 77–100; PULSE 61–94; RESP 14–18; TEMP 97.1–98.2; O2SAT 93–100
[2025-08-31] MEDS: NITROGLYCERIN 0.4 MG SL TAB SL PRN (08:08)
--- NOTE | 2025-08-31 11:58 | DVHPN2 ---
Subjective The patient is seen and examined at bedside. Still have shortness for breath when ambulate. Reviewed: Care Plan, H&P, Labs, Medications, Previous Orders, Radiology Changes from previous H/P or p: No Changes Eyes: No Pain, No Vision change, No Conjunctivae inflammation, No Eyelid inflammation, No Other, No Redness ENT: No Ear pain, No Ear discharge, No Nose pain, No Nose discharge, No Nose congestion, No Mouth pain, No Mouth swelling, No Throat pain, No Throat swelling, No Other Cardiovascular: No Chest Pain, No Palpitations, No Orthopnea, No Paroxysmal Noc. Dyspnea, No Edema, No Lt Headedness, No Other Respiratory: No Cough, No Dry; Shortness of breath; No SOB with excertion, No Wheezing, No Hemoptysis, No Pleuritic Pain, No Sputum; Other (SOB at rest) Gastrointestinal: No Nausea, No Vomiting, No Abdominal Pain, No Diarrhea, No Constipation, No Melena, No Hematochezia, No Other Genitourinary: No Dysuria, No Frequency, No Incontinence, No Hematuria, No Retention, No Other Musculoskeletal: No other, No neck pain, No shoulder pain, No arm pain, No back pain, No hand pain, No leg pain, No foot pain Skin: No Rash, No Lesions, No Jaundice, No Bruising, No Other Objective Vitals Vital Signs Date Time Temp Pulse Resp B/P (MAP) Pulse Ox O2 Delivery O2 Flow Rate FiO2 08/31/25 09:13 94 140/100 08/31/25 08:58 97.1 16 93 97.1 08/31/25 08:00 Room Air* 0 21 Intake/Output Intake and Output 08/31/25 07:00 Intake Total 2100 ml Balance 2100 ml Intake Oral 2100 ml # Voids 7 General Appearance: Alert, Oriented X3, Cooperative, No acute distress HEENT: Atraumatic, PERRLA, EOMI, Mucous membr. moist/pink Neck: Supple Lungs: Clear to auscultation, Normal air movement Cardiovascular: Regular rate, Normal S1, Normal S2, No murmurs, Gallops, Rubs Abdomen: Normal bowel sounds, Soft, No tenderness, No hepatospenomegaly Neuro: Cranial nerves 3-12 NL Psych/Mental Status: Mental status NL Medications Current Medications Medications Dose Ordered Sig/Mary Route Start Time Stop Time Status Last Admin Dose Admin Aspirin 81 mg DAILY PO 08/30/25 10:00 08/31/25 09:12 81 MG Furosemide 40 mg DAILY IV 08/30/25 10:00 08/31/25 09:12 40 MG Atorvastatin Calcium 20 mg HS PO 08/29/25 22:00 08/30/25 22:21 20 MG Sodium Chloride 10 ml Q8HR IV 08/29/25 22:00 08/31/25 06:00 10 ML Acetaminophen/ Hydrocodone Bitart 1 tab Q4HP PRN PO 08/29/25 20:00 Ondansetron HCl 4 mg Q4HP PRN IV 08/29/25 20:00 Docusate Sodium 100 mg BIDPRN PRN PO 08/29/25 20:00 Acetaminophen 650 mg Q6HP PRN PO 08/29/25 20:00 Nitroglycerin 0.4 mg Q5MINP PRN SL 08/29/25 20:45 08/31/25 08:08 0.4 MG Morphine Sulfate 2 mg Q30M PRN IV 08/29/25 20:45 Carvedilol 6.25 mg Q12HR PO 08/30/25 10:00 08/31/25 09:13 6.25 MG Clonidine HCl 0.1 mg Q4HP PRN PO 08/30/25 05:00 Laboratory Results Laboratory Tests 08/30/25 04:11 Urinalysis Test 08/29/25 13:12 Urine Color Light-yellow (Yellow) Urine Clarity Clear (Clear) Urine pH 7.0 (5.0-9.0) Urine Specific [place] 1.017 (1.001-1.035) Urine Protein 1+ (Negative) H Urine Ketones Negative (Negative) Urine Blood Negative /uL (Negative) Urine Nitrite Negative (Negative) Urine Bilirubin Negative (Negative) Urine Urobilinogen Normal mg/dL (Negative) Urine Leukocyte Esterase Negative /uL (Negative) Urine RBC <1 /hpf (0 - 3) Urine Microscopic WBC < 1 /HPF (0-3) Urine Squamous Epithelial Cells None seen /hpf (<5) Urine Bacteria None seen /hpf (None Seen) Urine Glucose 4+ mg/dL (Normal) H Microbiology Microbiology Date/Time Source Procedure Growth Status 08/29/25 22:33 Nose MRSA Screen - Final Complete Labs and/or images reviewed: Labs reviewed by me Assessment/Plan Assessment/Plan Acute respiratory distress Generalized weakness Acute on chronic systolic congestive heart failure Hypertension Hyperlipidemia Plan Continuing current management Continuing with IV Lasix Continuing with nebulizer for breathing treatment Continuing with Coreg Continuing with Lipitor This medical document was created using an electronic medical record system with [employer] direct computerized dictation system. Although this document has been carefully reviewed, there may still be some phonetic and typographical errors. These areas are purely typographical due to imperfections of the software programs, and do not reflect any compromise in the patient's medical care. Plan discussed with: Patient My Orders Orders - JAYDEN MCCLENDON MD Procedure Category Date Status Time Complete Blood Count LAB 09/01/25 Verified 05:00 Date of Service: Aug 31, 2025 Billing Provider: JAYDEN MCCLENDON MD Common Visit Codes: [id number] INP/OBS CARE(HIGH) JAYDEN MCCLENDON MD Aug 31, 2025 11:58
[2025-08-31] MEDS: ACETAMINOPHEN 325 MG TAB PO PRN (16:33)
[2025-09-01] VITALS (16 sets, daily range): BP systolic 128–154; BP diastolic 77–107; PULSE 61–98; RESP 16–20; TEMP 97–98.5; O2SAT 92–100
[2025-09-01 07:29] LABS: Hematocrit 47.0 % (41.0-53.0); Hemoglobin 15.9 g/dL (13.5-17.5); Mean Corpuscular Hemoglobin 31.3 pg (28.0-32.0); Mean Corpuscular Volume 92.3 fL (80.0-100.0); Nucleated Red Blood Cells % 0.1 %
[2025-09-01 07:34] LABS: Potassium 4.1 mmol/L (3.5-5.1); Sodium 140 mmol/L (136-145)
[2025-09-01 07:35] LABS: Anion Gap 11 (5-15); Carbon Dioxide 22 mmol/L (20-31); Chloride 107 mmol/L (98-107)
[2025-09-01 07:36] LABS: Calcium 8.7 mg/dL (8.7-10.4)
[2025-09-01 07:40] LABS: BUN/Creatinine Ratio 20.2 (10.0-20.0); Blood Urea Nitrogen 19 mg/dL (9-23)
[2025-09-01 07:43] LABS: Glucose 121 mg/dL (74-106)
--- NOTE | 2025-09-01 11:51 | DVHPN2 ---
Subjective The patient is seen and examined at bedside. Still have shortness for breath when ambulate. Reviewed: Care Plan, H&P, Labs, Medications, Previous Orders, Radiology Changes from previous H/P or p: No Changes Eyes: No Pain, No Vision change, No Conjunctivae inflammation, No Eyelid inflammation, No Other, No Redness ENT: No Ear pain, No Ear discharge, No Nose pain, No Nose discharge, No Nose congestion, No Mouth pain, No Mouth swelling, No Throat pain, No Throat swelling, No Other Cardiovascular: No Chest Pain, No Palpitations, No Orthopnea, No Paroxysmal Noc. Dyspnea, No Edema, No Lt Headedness, No Other Respiratory: No Cough, No Dry; Shortness of breath; No SOB with excertion, No Wheezing, No Hemoptysis, No Pleuritic Pain, No Sputum; Other (SOB at rest) Gastrointestinal: No Nausea, No Vomiting, No Abdominal Pain, No Diarrhea, No Constipation, No Melena, No Hematochezia, No Other Genitourinary: No Dysuria, No Frequency, No Incontinence, No Hematuria, No Retention, No Other Musculoskeletal: No other, No neck pain, No shoulder pain, No arm pain, No back pain, No hand pain, No leg pain, No foot pain Skin: No Rash, No Lesions, No Jaundice, No Bruising, No Other Objective Vitals Vital Signs Date Time Temp Pulse Resp B/P (MAP) Pulse Ox O2 Delivery O2 Flow Rate FiO2 09/01/25 09:53 84 132/104 09/01/25 09:00 97.2 20 100 97.2 09/01/25 08:00 Room Air* 0 21 Intake/Output Intake and Output 09/01/25 07:00 Intake Total 600 ml Balance 600 ml Intake Oral 600 ml # Voids 9 # Bowel Movements 2 General Appearance: Alert, Oriented X3, Cooperative, No acute distress HEENT: Atraumatic, PERRLA, EOMI, Mucous membr. moist/pink Neck: Supple Lungs: Clear to auscultation, Normal air movement Cardiovascular: Regular rate, Normal S1, Normal S2, No murmurs, Gallops, Rubs Abdomen: Normal bowel sounds, Soft, No tenderness, No hepatospenomegaly Neuro: Cranial nerves 3-12 NL Psych/Mental Status: Mental status NL Medications Current Medications Medications Dose Ordered Sig/Mary Route Start Time Stop Time Status Last Admin Dose Admin Aspirin 81 mg DAILY PO 08/30/25 10:00 09/01/25 09:52 81 MG Furosemide 40 mg DAILY IV 08/30/25 10:00 09/01/25 09:52 40 MG Atorvastatin Calcium 20 mg HS PO 08/29/25 22:00 08/31/25 22:52 20 MG Sodium Chloride 10 ml Q8HR IV 08/29/25 22:00 09/01/25 06:00 10 ML Acetaminophen/ Hydrocodone Bitart 1 tab Q4HP PRN PO 08/29/25 20:00 Ondansetron HCl 4 mg Q4HP PRN IV 08/29/25 20:00 Docusate Sodium 100 mg BIDPRN PRN PO 08/29/25 20:00 Acetaminophen 650 mg Q6HP PRN PO 08/29/25 20:00 08/31/25 16:33 650 MG Nitroglycerin 0.4 mg Q5MINP PRN SL 08/29/25 20:45 08/31/25 08:08 0.4 MG Morphine Sulfate 2 mg Q30M PRN IV 08/29/25 20:45 Carvedilol 6.25 mg Q12HR PO 08/30/25 10:00 09/01/25 09:53 6.25 MG Clonidine HCl 0.1 mg Q4HP PRN PO 08/30/25 05:00 Laboratory Results Laboratory Tests 09/01/25 07:03 Chemistry Test 09/01/25 07:03 Calcium Level 8.7 mg/dL (8.7-10.4) Urinalysis Test 08/29/25 13:12 Urine Color Light-yellow (Yellow) Urine Clarity Clear (Clear) Urine pH 7.0 (5.0-9.0) Urine Specific [place] 1.017 (1.001-1.035) Urine Protein 1+ (Negative) H Urine Ketones Negative (Negative) Urine Blood Negative /uL (Negative) Urine Nitrite Negative (Negative) Urine Bilirubin Negative (Negative) Urine Urobilinogen Normal mg/dL (Negative) Urine Leukocyte Esterase Negative /uL (Negative) Urine RBC <1 /hpf (0 - 3) Urine Microscopic WBC < 1 /HPF (0-3) Urine Squamous Epithelial Cells None seen /hpf (<5) Urine Bacteria None seen /hpf (None Seen) Urine Glucose 4+ mg/dL (Normal) H Microbiology Microbiology Date/Time Source Procedure Growth Status 08/29/25 22:33 Nose MRSA Screen - Final Complete Labs and/or images reviewed: Labs reviewed by me Assessment/Plan Assessment/Plan Acute respiratory distress Generalized weakness Acute on chronic systolic congestive heart failure Hypertension Hyperlipidemia Plan Continuing current management Continuing with IV Lasix Continuing with nebulizer for breathing treatment Continuing with Coreg Continuing with Lipitor Will order a repeat CXR Neb with Atroven and albuterol This medical document was created using an electronic medical record system with [employer] dictation system. Although this document has been carefully reviewed, there may still be some phonetic and typographical errors. These areas are purely typographical due to imperfections of the software programs, and do not reflect any compromise in the patient's medical care. Plan discussed with: Patient My Orders Orders - JAYDEN MCCLENDON MD Procedure Category Date Status Time Complete Blood Count LAB 09/02/25 Verified 05:00 Complete Blood Count LAB 09/03/25 Verified 05:00 Complete Blood Count LAB 09/04/25 Verified 05:00 Complete Blood Count LAB 09/05/25 Verified 05:00 Basic Metabolic Panel LAB 09/02/25 Verified 05:00 Basic Metabolic Panel LAB 09/03/25 Verified 05:00 Basic Metabolic Panel LAB 09/04/25 Verified 05:00 Basic Metabolic Panel LAB 09/05/25 Verified 05:00 Date of Service: Sep 01, 2025 Billing Provider: JAYDEN MCCLENDON MD Common Visit Codes: [id number] INP/OBS CARE(HIGH) JAYDEN MCCLENDON MD Sep 01, 2025 11:51
--- NOTE | 2025-09-01 13:34 | DVH ---
INDICATION: chf TECHNIQUE: Frontal view of the chest. COMPARISON: XY CHEST PORTABLE on DOS: 08/29/25, CT CT ANGIO CHEST CONTRAST on DOS: 07/19/25, XY CHEST P ORTABLE on DOS: 07/16/25 FINDINGS: Cardiomegaly. There is no evidence of pleural disease. The lungs are clear. The bony structures of the chest are intact without fracture. IMPRESSION: 1. Cardiomegaly with mild CHF.
[2025-09-01] MEDS: ALBUTEROL SULF 2.5 MG/0.5ML(0.5%) NEB SOLN NEB SCH (14:23)
[2025-09-01] MEDS: IPRATROPIUM BROM 0.5 MG/2.5ML INH SOL NEB SCH (14:23)
[2025-09-01] MEDS: MELATONIN 5 MG TAB PO ONE (22:21)
[2025-09-02] VITALS (7 sets, daily range): BP systolic 130–150; BP diastolic 80–106; PULSE 66–92; RESP 16–20; TEMP 97.6–98.5; O2SAT 98–100
[2025-09-02 06:18] LABS: Hematocrit 45.7 % (41.0-53.0); Hemoglobin 15.3 g/dL (13.5-17.5); Mean Corpuscular Hemoglobin 30.7 pg (28.0-32.0); Mean Corpuscular Volume 91.7 fL (80.0-100.0); Nucleated Red Blood Cells % 0.1 %
[2025-09-02 06:38] LABS: Anion Gap 12 (5-15); Carbon Dioxide 22 mmol/L (20-31); Chloride 107 mmol/L (98-107); Potassium 3.9 mmol/L (3.5-5.1); Sodium 141 mmol/L (136-145)
[2025-09-02 06:39] LABS: Calcium 9.1 mg/dL (8.7-10.4)
[2025-09-02 06:44] LABS: BUN/Creatinine Ratio 24.5 (10.0-20.0); Glucose 81 mg/dL (74-106)
[2025-09-02 06:50] LABS: Blood Urea Nitrogen 24 mg/dL (9-23)
[2025-09-02] MEDS ORDERED: ASPI-325 PO (10:25)
[2025-09-02] MEDS ORDERED: FURO40TA4 PO (10:25)
[2025-09-02] MEDS ORDERED: CARV-214 PO (10:25)
[2025-09-02] MEDS ORDERED: SACU1TAB PO (10:25)
[2025-09-02] MEDS ORDERED: EMPA1TAB PO (10:25)
[2025-09-02] MEDS ORDERED: SPIR25TA PO (10:25)
[2025-09-02] MEDS ORDERED: ATOR20TA50 PO (10:25)
--- NOTE | 2025-09-02 10:26 | DVHDS2 ---
Discharge Summary Date of Admission Aug 29, 2025 at 20:37 Date of Discharge: Sep 02, 2025 Admitting Diagnosis Acute respiratory distress Generalized weakness Acute on chronic systolic congestive heart failure Hypertension Hyperlipidemia Labs/Diagnostic Data: Laboratory Results Test 09/02/25 04:44 08/30/25 04:11 08/29/25 13:12 08/29/25 13:01 White Blood Count 5.8 10^3/uL (4.4-10.8) Red Blood Count 4.98 10^6/uL (4.5-5.90) Hemoglobin 15.3 g/dL (13.5-17.5) Hematocrit 45.7 % (41.0-53.0) Mean Corpuscular Volume 91.7 fL (80.0-100.0) Mean Corpuscular Hemoglobin 30.7 pg (28.0-32.0) Mean Corpuscular Hemoglobin Concent 33.5 g/dL (32.0-36.0) Red Cell Distribution Width 15.0 % (11.8-14.3) Platelet Count 192 10^3/uL (140-450) Mean Platelet Volume 9.6 fL (6.9-10.8) Neutrophils (%) (Auto) 53.8 % (37.0-80.0) Lymphocytes (%) (Auto) 28.9 % (10.0-50.0) Monocytes (%) (Auto) 10.3 % (0.0-12.0) Eosinophils (%) (Auto) 5.4 % (0.0-7.0) Basophils (%) (Auto) 1.6 % (0.0-2.0) Neutrophils # (Auto) 3.1 10 ^3/uL (1.6-8.6) Lymphocytes # (Auto) 1.7 10 ^3/uL (0.4-5.4) Monocytes # (Auto) 0.6 10 ^3/uL (0-1.3) Eosinophils # (Auto) 0.3 10 ^3/uL (0-0.8) Basophils # (Auto) 0.1 10 ^3/uL (0-0.2) Nucleated Red Blood Cells 0.1 % Sodium Level 141 mmol/L (136-145) Potassium Level 3.9 mmol/L (3.5-5.1) Chloride Level 107 mmol/L (98-107) Carbon Dioxide Level 22 mmol/L (20-31) Anion Gap 12 (5-15) Blood Urea Nitrogen 24 mg/dL (9-23) Creatinine 0.98 mg/dL (0.700-1.30) Glomerular Filtration Rate Calc 90 mL/min (>90) BUN/Creatinine Ratio 24.5 (10.0-20.0) Serum Glucose 81 mg/dL (74-106) Calcium Level 9.1 mg/dL (8.7-10.4) Total Bilirubin 0.6 mg/dL (0.2-1.0) Aspartate Amino Transferase (AST) 40 U/L (13-40) Alanine Aminotransferase (ALT) 76 U/L (7-40) Alkaline Phosphatase 105 U/L (46-116) Total Protein 7.1 g/dL (5.7-8.2) Albumin 4.0 g/dL (3.2-4.8) Urine Color Light-yellow (Yellow) Urine Clarity Clear (Clear) Urine pH 7.0 (5.0-9.0) Urine Specific [place] 1.017 (1.001-1.035) Urine Protein 1+ (Negative) Urine Ketones Negative (Negative) Urine Blood Negative /uL (Negative) Urine Nitrite Negative (Negative) Urine Bilirubin Negative (Negative) Urine Urobilinogen Normal mg/dL (Negative) Urine Leukocyte Esterase Negative /uL (Negative) Urine RBC <1 /hpf (0 - 3) Urine Microscopic WBC < 1 /HPF (0-3) Urine Squamous Epithelial Cells None seen /hpf (<5) Urine Bacteria None seen /hpf (None Seen) Urine Glucose 4+ mg/dL (Normal) Troponin I High Sensitivity 39 ng/L (</=54) B-Type Natriuretic Peptide 3395.49 pg/mL (0-100) Other Laboratory Tests 09/02/25 04:44 Brief Hx & Hospital Course: This is a 59 years old male with past medical history of systolic congestive heart failure, hypertension, hyperlipidemia, pulmonary hypertension come to emergency department with chief complaint of severe shortness for breath. Patient has been experience sudden unprovoked difficulty breathing and shortness for breath at rest. The patient increased work of breathing and shortness for breath on exertion. The patient was admitted. The patient was started on IV Lasix. Repeat chest x-ray showed minimal pleural effusion. The patient just recently moved to this area and did not establish any primary care physician nor maintenance instructor's yet. The patient echo last admission in July showed EF only 15% with severe global LV and RV hypokinesis. He does have moderate degree of mitral regurg station and severe pulmonary hypertension, RVSP is 60 mmHG is very high. Based on his echo he has end-stage dilated cardiomyopathy. Patient stated that he compliance with his medication. 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 The patient stated he is compliant with his medication which is Coreg , Entresto, Aldactone and Lasix. The patient stated he had not see his maintenance instructor's down in [place] for awhile. He also had primary care physician which he see for 30 years in [place] lately his insurance had change in he had not have a chance to see this doctor. The patient today doing better. Shortness for breath is minimal. The patient Lasix will be switched to oral. Advised the patient to follow up with primary care physician 1-2 weeks. We will provide the follow up clinic here in the hospital for the patient until his insurance switched to each be in he able to find a primary care doctor as outpatient. Also advised the patient to have a maintenance instructor's to follow up with his end-stage dilated cardiomyopathy. The patient may benefit from sildenafil for his pulmonary hypertension. Advice to be start with primary care physician. Activity as tolerated. Diet low-salt low-cholesterol diet. Physical exam: HEENT: Normocephalic atraumatic pupils equal react to light and accommodation. Extraocular muscles intact, conjunctiva pink, oropharynx moist, no thrush, no exudate. Lymphatic: No lymphadenopathy Cardiovascular exam: S1, S2 was heard. No murmurs, rubs, gallops Lung: Clear on auscultation bilaterally, no wheeze, rale, rhonchi. GI: Abdominal soft, nondistended, nontenderness, positive bowel sounds. Extremity: No crepitus, cyanosis, edema. Pedal pulses present bilateral. Full range of motion. Skin: Normal turgor, no rash. Psych: Alert, oriented x3. Neurology: No focal deficits, cranial nerve II to XII grossly intact. This medical document was created using an electronic medical record system with [employer] computerized dictation system. Although this document has been carefully reviewed, there may still be some phonetic and typographical errors. These areas are purely typographical due to imperfections of the software programs, and do not reflect any compromise in the patient's medical care. Condition at Discharge: Stable Final Diagnosis/Problems List Acute respiratory distress Generalized weakness Acute on chronic systolic congestive heart failure Hypertension Hyperlipidemia Pulmonary hypertension End-stage dilated cardiomyopathy Discharge Disposition: Home Discharge Instruct/Medications Diet: Cardiac 2g Na,low cholest Activity: No Restrictions, As Tolerated Follow Up/Referral: pcp 1-2 weeks Medications: See med list Scheduled Aspirin (Aspirin Low Dose), 81 MG PO DAILY Atorvastatin Calcium (Atorvastatin Calcium), 40 MG PO HS Carvedilol (Coreg), 3.125 MG PO Q12HR Empagliflozin (Jardiance), 10 MG PO DAILY Furosemide (Furosemide), 40 MG PO DAILY Sacubitril-Valsartan (Entresto 24-26 mg), 1 TAB PO BID Spironolactone (Aldactone), 25 MG PO DAILY Scheduled PRN Acetaminophen (Acetaminophen), 650 MG PO Q4HP PRN Discharge Statement: "Patient was advised to return to the ER or call 911 if any headaches, dizziness, shortness of breath, chest pain, abdominal pain, bleeding, fevers, or worsening of medical condition. Patient was counseled about treatment plan, medications, possible side effects, patientverbalized understanding. All questions were answered to the best of my ability. This discharge took greater then 30 minutes in planning, reviewing documentation, counseling the patient, and discussing with other team members." ASSESSMENT ASSESSMENT Assessment CHF exacerbation Date of Service: Sep 02, 2025 Billing Provider: JAYDEN MCCLENDON MD Common Visit Codes: [id number] DISCH DAY >30min JAYDEN MCCLENDON MD Sep 02, 2025 10:26
== END 2025-09-02 14:08 | disposition home or self-care (01) | DRG 194 ==
LOC: ER 11:12 → OVERFLOW 20:37 → TELE-WESTW 08-30 05:34
PROVIDERS: ADMIT Internal Medicine; ATTEND Internal Medicine
DX: I11.0 Hypertensive heart disease with heart failure (principal); I27.20 Pulmonary hypertension, unspecified; I50.23 Acute on chronic systolic (congestive) heart failure; E78.5 Hyperlipidemia, unspecified; F17.210 Nicotine dependence, cigarettes, uncomplicated; I42.0 Dilated cardiomyopathy; I34.0 Nonrheumatic mitral (valve) insufficiency
CPT/HCPCS: 36415; 71045; 80048; 80053; 81001; 83880; 84484; 85025; 87081; 93005; 94640; 96374; 99291; 99292; G0378